=== PATIENT | male | born 1995 | race Caucasian/White ===

== ENCOUNTER 2018-04-11 08:49 | Emergency (ER) | payer MEDICAID ==
[2018-04-11] MEDS ORDERED: Ondansetron 4 MG/2 ML SDV IVPUSH ONE (09:46)
--- NOTE | 2018-04-11 09:57 | EDM.PDOC ---
ED HPI GENERAL MEDICAL PROBLEM - General Chief Complaint: General Stated Complaint: ARMS LOCKED UP, VOCAL ISSUES, SWEATING Time Seen by Provider: 04/11/18 09:35 Source of Information: Reports: Patient, Family History Limitations: Reports: No Limitations - History of Present Illness INITIAL COMMENTS - FREE TEXT/NARRATIVE: 22-year-old male drank a lot of alcohol last night, had to wake up early this morning and go to work so he had an energy drink. He was very nauseous, had an emesis and then felt very lightheaded and short of breath. He then felt like his arms went numb and "locked up" and he just didn't feel right so came in to be evaluated. He had 2 more episodes of emesis, no hematemesis and no diarrhea. He has no pain but still feels nauseous and anxious. He is tachycardic with a sinus rhythm of 124. Onset: Unknown/Unsure Severity: Moderate Worsens with: Reports: Other (Becomes lightheaded with walking) Associated Symptoms: Reports: Diaphoresis, Loss of Appetite, Malaise, Nausea/ Vomiting, Weakness. Denies: Confusion, Chest Pain, Cough, Fever/Chills, Shortness of Breath - Related Data Allergies Allergy/AdvReac Type Severity Reaction Status Date / Time No Known Allergies Allergy Verified 04/11/18 09:28 Home Meds: Home Meds NK [No Known Home Meds] 04/11/18 [History] Social & Family History - Tobacco Use Smoking Status *Q: Never Smoker - Caffeine Use Caffeine Use: Reports: Coffee, Energy Drinks, Soda - Recreational Drug Use Recreational Drug Use: No ED ROS GENERAL - Review of Systems Review Of Systems: See Below Constitutional: Reports: Malaise, Weakness, Decreased Appetite. Denies: Fever, Chills HEENT: Reports: Other (Initially was unable to talk). Denies: Vision Change Respiratory: Reports: Shortness of Breath Cardiovascular: Denies: Chest Pain GI/Abdominal: Reports: Nausea, Vomiting. Denies: Abdominal Pain : Reports: No Symptoms Musculoskeletal: Reports: Other (Significant muscle spasms in his arms which have resolved) Neurological: Reports: Numbness (Upper extremities), Trouble Speaking. Denies: Headache Psychiatric: Reports: Anxiety ED EXAM, GENERAL - Physical Exam Exam: See Below Exam Limited By: No Limitations General Appearance: Alert, No Apparent Distress, Other (Still somewhat anxious, looks pale) Eye Exam: Bilateral Eye: Normal Inspection Throat/Mouth: Normal Inspection Head: Atraumatic Neck: Normal Inspection Respiratory/Chest: No Respiratory Distress, Lungs Clear Cardiovascular: Regular Rate, Rhythm, Tachycardia GI/Abdominal: Soft, Non-Tender Extremities: Normal Inspection. No: Pedal Edema Neurological: Alert, Oriented Psychiatric: Anxious Skin Exam: Warm, Dry, Pallor Course - Vital Signs Last Recorded V/S: Last Vital Signs Temp 96.5 F 04/11/18 09:30 Pulse 120 H 04/11/18 09:30 Resp 13 04/11/18 09:30 BP 143/101 H 04/11/18 09:30 Pulse Ox 98 04/11/18 09:30 - Orders/Labs/Meds Labs: Laboratory Tests 04/11/18 04/11/18 Range/Units 10:00 10:00 WBC 18.9 H (4.5-11.0) K/uL RBC 5.15 (4.30-5.90) M/uL Hgb 16.5 H (12.0-15.0) g/dL Hct 47.6 (40.0-54.0) % MCV 92 (80-98) fL MCH 32 H (27-31) pg MCHC 35 (32-36) % Plt Count 260 (150-400) K/uL Neut % (Auto) 79 H (36-66) % Lymph % (Auto) 15 L (24-44) % [place] % (Auto) 6 (2-6) % Eos % (Auto) 0 L (2-4) % Baso % (Auto) 0 (0-1) % Sodium 140 (140-148) mmol/L Potassium 3.5 L (3.6-5.2) mmol/L Chloride 100 (100-108) mmol/L Carbon Dioxide 22 (21-32) mmol/L Anion Gap 21.5 H (5.0-14.0) mmol/L BUN 13 (7-18) mg/dL Creatinine 1.3 (0.8-1.3) mg/dL Est Cr Clr Drug Dosing 87.13 mL/min Estimated GFR (MDRD) > 60 (>60) Glucose 133 H (74-106) mg/dL Calcium 9.8 (8.5-10.1) mg/dL Total Bilirubin 0.5 (0.2-1.0) mg/dL AST 90 H (15-37) U/L ALT 167 H (12-78) U/L Alkaline Phosphatase 83 (46-116) U/L Total Protein 8.3 H (6.4-8.2) g/dL Albumin 4.2 (3.4-5.0) g/dL Globulin 4.1 H (2.3-3.5) g/dL Albumin/Globulin Ratio 1.0 L (1.2-2.2) Meds: Medications Discontinued Medications Generic Name Dose Route Start Last Admin Trade Name Freq PRN Reason Stop Dose Admin Sodium Chloride 1,000 mls @ 1,000 mls/hr 04/11/18 10:00 04/11/18 10:00 Normal Saline IV 1,000 mls/hr ASDIRECTED HARRY Administration Ondansetron HCl 4 mg 04/11/18 09:46 04/11/18 10:00 Zofran IVPUSH 04/11/18 09:47 4 mg ONETIME ONE Administration - Re-Assessments/Exams Free Text/Narrative Re-Assessment/Exam: 04/11/18 09:56 IV was started, patient was given 1 L normal saline along with 4 mg of IV Zofran. CBC CMP were obtained. 04/11/18 10:29 Patient rapidly improved with the IV fluids and Zofran. White count returned elevated, anion gap was elevated and liver enzymes were elevated. I had a discussion with the patient about his alcohol intake and he admitted he drinks fairly heavily on a daily basis. I offered him detox but he elected to try to go home and sober up on his own. He was given a full liter of fluids and felt near baseline on discharge. Departure - Departure Time of Disposition: 11:10 Disposition: Home, Self-Care 01 Condition: Fair Clinical Impression: Acute hyperventilation syndrome, Dehydration - Discharge Information Instructions: Dehydration, Adult, [id number] Referrals: PCP,None [Primary Care Provider] - Forms: ED Department Discharge Care Plan Goals: Drink lots of fluids, rest, and avoid alcohol if possible. If symptoms are worsening or you are unable to quit drinking, seek help.
[2018-04-11] MEDS ORDERED: Sodium Chloride 0.9% 1,000 ML IV SCH (10:00)
== END 2018-04-11 11:09 | disposition home or self-care (01) ==
LOC: JP.ED 08:49
DX: E86.0 Dehydration (principal); F45.8 Other somatoform disorders
CPT/HCPCS: 36415; 80053; 85025; 96361; 96374; 99284; J2405; J7030

== ENCOUNTER 2019-04-06 18:10 | Emergency (ER) | payer MEDICAID ==
[2019-04-06] MEDS ORDERED: MVI, Adult with Vitamin K 10 ML, Thiamine 100 MG, Folic Acid 1 MG, Magnesium Sulfate 2 ... IV ONE ×5 (18:35)
[2019-04-06] MEDS ORDERED: Sodium Chloride 0.9% 10 ML Syringe FLUSH PRN (18:35)
--- NOTE | 2019-04-06 18:43 | EDM.PDOCBH ---
ED HPI GENERAL MEDICAL PROBLEM - General Chief Complaint: Drug or Alcohol Abuse Stated Complaint: EVAL Time Seen by Provider: 04/06/19 18:30 Source of Information: Reports: Patient, Family, RN Notes Reviewed History Limitations: Reports: No Limitations - History of Present Illness INITIAL COMMENTS - FREE TEXT/NARRATIVE: 23-year-old gentleman presents emergency department today requesting detoxification for alcohol. States he last used alcohol this morning prefers to drink schnapps. He states he's never been to detox before he does have one complained he's noticed some numbness and tingling in his feet that has been going on for about a week. He does admit to poor oral intake not eating as well as she should she eats maybe once a day otherwise just uses alcohol - Related Data Allergies Allergy/AdvReac Type Severity Reaction Status Date / Time No Known Allergies Allergy Verified 04/06/19 19:17 Home Meds: Home Meds NK [No Known Home Meds] 04/11/18 [History] Past Medical History HEENT History: Reports: Impaired Vision Psychiatric History: Reports: Addiction Social & Family History - Tobacco Use Smoking Status *Q: Never Smoker - Caffeine Use Caffeine Use: Reports: None - Alcohol Use Days Per Week of Alcohol Use: 7 Number of Drinks Per Day: 12 Total Drinks Per Week: 84 Date of Last Drink: 04/06/19 Time of Last Drink: 12:00 - Recreational Drug Use Recreational Drug Use: No ED ROS GENERAL - Review of Systems Review Of Systems: See Below Constitutional: Reports: No Symptoms HEENT: Reports: No Symptoms Respiratory: Reports: No Symptoms Cardiovascular: Reports: No Symptoms GI/Abdominal: Reports: No Symptoms : Reports: No Symptoms Musculoskeletal: Reports: No Symptoms Skin: Reports: No Symptoms Neurological: Reports: Numbness, Tingling ED EXAM, BEHAVIORAL HEALTH - Physical Exam Exam: See Below Exam Limited By: No Limitations General Appearance: Alert, WD/WN, No Apparent Distress Respiratory/Chest: No Respiratory Distress, Lungs Clear, Normal Breath Sounds, No Accessory Muscle Use, Chest Non-Tender Cardiovascular: Regular Rate, Rhythm, No Murmur GI/Abdominal: Soft, Non-Tender COURSE, BEHAVIORAL HEALTH COMP - Course Vital Signs: Last Vital Signs Temp 97.1 F 04/06/19 18:30 Pulse 101 H 04/06/19 18:30 Resp 22 H 04/06/19 18:30 BP 145/98 H 04/06/19 18:30 Pulse Ox 97 04/06/19 18:30 Orders, Labs, Meds: Active Orders 24 hr Category Date Time Status Peripheral IV Care [RC] . DIRECTED Care 04/06/19 18:36 Active Sodium Chloride 0.9% [Saline Flush] Med 04/06/19 18:35 Active 10 ml FLUSH ASDIRECTED PRN Peripheral IV Insertion Adult [OM.PC] Urgent Oth 04/06/19 18:35 Ordered Medication Orders Sodium Chloride (Saline Flush) 10 ml FLUSH ASDIRECTED PRN PRN Reason: Keep Vein Open Last Admin: 04/06/19 18:52 Dose: 10 ml Laboratory Tests 04/06/19 04/06/19 04/06/19 Range/Units 18:35 18:35 18:35 WBC 9.5 (4.5-11.0) K/uL RBC 4.72 (4.30-5.90) M/uL Hgb 15.0 (12.0-15.0) g/dL Hct 44.0 (40.0-54.0) % MCV 93 (80-98) fL MCH 32 H (27-31) pg MCHC 34 (32-36) % Plt Count 290 (150-400) K/uL Neut % (Auto) 62 (36-66) % Lymph % (Auto) 22 L (24-44) % [place] % (Auto) 15 H (2-6) % Eos % (Auto) 0 L (2-4) % Baso % (Auto) 1 (0-1) % Sodium 127 L (140-148) mmol/L Potassium 2.4 L* (3.6-5.2) mmol/L Chloride 80 L (100-108) mmol/L Carbon Dioxide 33 H (21-32) mmol/L Anion Gap 16.4 H (5.0-14.0) mmol/L BUN 6 L D (7-18) mg/dL Creatinine 1.1 (0.8-1.3) mg/dL Est Cr Clr Drug Dosing 111.81 mL/min Estimated GFR (MDRD) > 60 (>60) Glucose 121 H (74-106) mg/dL Calcium 10.1 (8.5-10.1) mg/dL Total Bilirubin 3.6 H D (0.2-1.0) mg/dL AST 332 H D (15-37) U/L ALT 137 H (12-78) U/L Alkaline Phosphatase 190 H D (46-116) U/L Total Protein 8.9 H (6.4-8.2) g/dL Albumin 4.1 (3.4-5.0) g/dL Globulin 4.8 H (2.3-3.5) g/dL Albumin/Globulin Ratio 0.9 L (1.2-2.2) Urine Color (YELLOW) Urine Appearance (CLEAR) Urine pH (5.0-8.0) Ur Specific [place] (1.008-1.030) Urine Protein (NEGATIVE) mg/dL Urine Glucose (UA) (NEGATIVE) mg/dL Urine Ketones (NEGATIVE) mg/dL Urine Occult Blood (NEGATIVE) Urine Nitrite (NEGATIVE) Urine Bilirubin (NEGATIVE) Urine Urobilinogen (0.2-1.0) EU/dL Ur Leukocyte Esterase (NEGATIVE) Urine RBC (0-5) Urine WBC (0-5) Ur Epithelial Cells Amorphous Sediment Urine Bacteria Urine Mucus Urine Opiates Screen (NEGATIVE) Ur Oxycodone Screen (NEGATIVE) Urine Methadone Screen (NEGATIVE) Ur Propoxyphene Screen (NEGATIVE) Ur Barbiturates Screen (NEGATIVE) Ur Tricyclics Screen (NEGATIVE) Ur Phencyclidine Scrn (NEGATIVE) Ur Amphetamine Screen (NEGATIVE) U Methamphetamines Scrn (NEGATIVE) Urine MDMA Screen (NEGATIVE) U Benzodiazepines Scrn (NEGATIVE) U Cocaine Metab Screen (NEGATIVE) U Marijuana (THC) Screen (NEGATIVE) Ethyl Alcohol 128 mg/dL 04/06/19 04/06/19 04/07/19 Range/Units 22:09 22:09 00:05 WBC (4.5-11.0) K/uL RBC (4.30-5.90) M/uL Hgb (12.0-15.0) g/dL Hct (40.0-54.0) % MCV (80-98) fL MCH (27-31) pg MCHC (32-36) % Plt Count (150-400) K/uL Neut % (Auto) (36-66) % Lymph % (Auto) (24-44) % [place] % (Auto) (2-6) % Eos % (Auto) (2-4) % Baso % (Auto) (0-1) % Sodium (140-148) mmol/L Potassium 2.9 L* (3.6-5.2) mmol/L Chloride (100-108) mmol/L Carbon Dioxide (21-32) mmol/L Anion Gap (5.0-14.0) mmol/L BUN (7-18) mg/dL Creatinine (0.8-1.3) mg/dL Est Cr Clr Drug Dosing mL/min Estimated GFR (MDRD) (>60) Glucose (74-106) mg/dL Calcium (8.5-10.1) mg/dL Total Bilirubin (0.2-1.0) mg/dL AST (15-37) U/L ALT (12-78) U/L Alkaline Phosphatase (46-116) U/L Total Protein (6.4-8.2) g/dL Albumin (3.4-5.0) g/dL Globulin (2.3-3.5) g/dL Albumin/Globulin Ratio (1.2-2.2) Urine Color [place] A (YELLOW) Urine Appearance Clear (CLEAR) Urine pH 6.0 (5.0-8.0) Ur Specific [place] 1.010 (1.008-1.030) Urine Protein Negative (NEGATIVE) mg/dL Urine Glucose (UA) Negative (NEGATIVE) mg/dL Urine Ketones Negative (NEGATIVE) mg/dL Urine Occult Blood Negative (NEGATIVE) Urine Nitrite Negative (NEGATIVE) Urine Bilirubin Small H (NEGATIVE) Urine Urobilinogen 4.0 H (0.2-1.0) EU/dL Ur Leukocyte Esterase Negative (NEGATIVE) Urine RBC 0-5 (0-5) Urine WBC 0-5 (0-5) Ur Epithelial Cells Few Amorphous Sediment Few Urine Bacteria Rare Urine Mucus Few Urine Opiates Screen Negative (NEGATIVE) Ur Oxycodone Screen Negative (NEGATIVE) Urine Methadone Screen Negative (NEGATIVE) Ur Propoxyphene Screen Negative (NEGATIVE) Ur Barbiturates Screen Negative (NEGATIVE) Ur Tricyclics Screen Negative (NEGATIVE) Ur Phencyclidine Scrn Negative (NEGATIVE) Ur Amphetamine Screen Negative (NEGATIVE) U Methamphetamines Scrn Negative (NEGATIVE) Urine MDMA Screen Negative (NEGATIVE) U Benzodiazepines Scrn Negative (NEGATIVE) U Cocaine Metab Screen Negative (NEGATIVE) U Marijuana (THC) Screen Negative (NEGATIVE) Ethyl Alcohol mg/dL Medications Generic Name Dose Route Start Last Admin Trade Name Keshav PRN Reason Stop Dose Admin Sodium Chloride 10 ml 04/06/19 18:35 04/06/19 18:52 Saline Flush FLUSH 10 ml ASDIRECTED PRN Administration Keep Vein Open Discontinued Medications Generic Name Dose Route Start Last Admin Trade Name Keshav PRN Reason Stop Dose Admin Multivitamins/Minerals 10 ml/ 1,015.2 mls @ 500 mls/hr 04/06/19 18:35 19:18 Thiamine HCl 100 mg/ Folic IV 04/06/19 20:36 500 mls/hr Acid 1 mg/ Magnesium Sulfate 2 ONETIME ONE Administration gm/ Sodium Chloride Potassium Chloride 20 meq/ 100 mls @ 50 mls/hr 04/06/19 19:12 04/06/19 20:48 Premix IV 04/06/19 21:11 50 mls/hr ONETIME ONE Administration Ondansetron HCl 4 mg 04/06/19 20:05 04/06/19 20:17 Zofran IVPUSH 04/06/19 20:06 4 mg ONETIME ONE Administration Potassium Chloride 40 meq 04/06/19 19:11 04/06/19 19:58 Klor-Con M20 PO 04/06/19 19:12 40 meq ONETIME ONE Administration Departure - Departure Time of Disposition: 00:47 Disposition: DC/Tfer to Inpt Rehab Fac 62 Condition: Fair Clinical Impression: Alcohol abuse - Discharge Information Referrals: PCP,None [Primary Care Provider] - Forms: ED Department Discharge Additional Instructions: Please report to [facility] for detoxification, continue working on inpatient treatment for alcohol - My Orders Last 24 Hours: My Active Orders 04/06/19 18:35 Sodium Chloride 0.9% [Saline Flush] 10 ml FLUSH ASDIRECTED PRN Peripheral IV Insertion Adult [OM.PC] Urgent 04/06/19 18:36 Peripheral IV Care [RC] . DIRECTED - Assessment/Plan Last 24 Hours: My Active Orders 04/06/19 18:35 Sodium Chloride 0.9% [Saline Flush] 10 ml FLUSH ASDIRECTED PRN Peripheral IV Insertion Adult [OM.PC] Urgent 04/06/19 18:36 Peripheral IV Care [RC] . DIRECTED Plan: Assessment Acuity = acute Site and laterality = alcohol abuse and dependence Etiology = EtOH Manifestations = elevated liver enzymes and hypokalemia Location of injury = Home Lab values = CBC unremarkable sodium low at 127 consistent hyponatremia potassium low at 2.4 consistent hypokalemia F replacement potassium 2.9 total bilirubin elevated 3.6 consistent hyperbilirubinemia AST elevated 3T to AOT elevated 137 consistent elevated liver enzymes alcohol was 128 urine tox screen negative Plan He is transferred to [facility] detoxification facility for alcohol withdrawal and and plan for inpatient treatment afterwards This note was dictated using [employer] voice recognition software please call with any questions on syntax or grammar.
[2019-04-06] MEDS ORDERED: Potassium Chloride 20 MEQ Tab.ER PO ONE (19:11)
[2019-04-06] MEDS ORDERED: Potassium Chloride 20 MEQ in Premix Bag 1 BAG IV ONE (19:12)
[2019-04-06] MEDS ORDERED: Ondansetron 4 MG/2 ML SDV IVPUSH ONE (20:05)
== END 2019-04-07 01:36 ==
LOC: JP.ED 18:10
DX: F10.10 Alcohol abuse, uncomplicated (principal); Y90.6 Blood alcohol level of 120-199 mg/100 ml
CPT/HCPCS: 36415; 80053; 80305; 80320; 81001; 84132; 85025; 96365; 96366; 96367; 96375; 99284; A9270; J2405; J3411; J3475; J3480; J7030; G0480; J3490

== ENCOUNTER 2019-04-08 06:46 | Emergency (ER) | payer MEDICAID ==
[2019-04-08] MEDS ORDERED: Alum Hydrox/Mag Hydrox/Simeth 15 ML, Lidocaine 2% 15 ML PO ONE ×2 (07:30)
[2019-04-08] MEDS ORDERED: Ondansetron 4 MG Tab.DIS PO ONE (07:31)
--- NOTE | 2019-04-08 07:36 | EDM.PDOC ---
ED HPI GENERAL MEDICAL PROBLEM - General Chief Complaint: Abdominal Pain Stated Complaint: STOMACH PAIN Time Seen by Provider: 04/08/19 07:25 Source of Information: Reports: Patient, RN History Limitations: Reports: No Limitations - History of Present Illness INITIAL COMMENTS - FREE TEXT/NARRATIVE: 23 yo male recently admitted to [facility] for alcohol abuse presents with abdominal pain that began early this morning. Has had some diarrhea. Feels a little nausea. No fever. No black or bloody stools. Here from [facility] who has his bed on hold for now. Onset: Today Onset Date: 04/08/19 Duration: Hour(s):, Waxing/Waning Location: Reports: Abdomen, Generalized Quality: Reports: Ache Severity: Moderate Improves with: Reports: None Worsens with: Reports: None Context: Reports: Other (see HPI) Associated Symptoms: Reports: Loss of Appetite, Nausea/Vomiting (no vomiting). 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) Left Upper Abdomen Pain Score (Numeric/FACES): 9 - Related Data Allergies Allergy/AdvReac Type Severity Reaction Status Date / Time No Known Allergies Allergy Verified 04/08/19 07:17 Home Meds: Home Meds Potassium Chloride [Klor-Con] 20 meq PO DAILY 04/08/19 [History] Past Medical History HEENT History: Reports: Impaired Vision Psychiatric History: Reports: Addiction Social & Family History - Tobacco Use Smoking Status *Q: Never Smoker - Caffeine Use Caffeine Use: Reports: None - Recreational Drug Use Recreational Drug Use: No ED ROS GENERAL - Review of Systems Review Of Systems: See Below Constitutional: Reports: Malaise HEENT: Reports: No Symptoms Respiratory: Reports: No Symptoms Cardiovascular: Reports: No Symptoms Endocrine: Reports: No Symptoms GI/Abdominal: Reports: Anorexia, Diarrhea, Nausea. Denies: Black Stool, Bloody Stool, Constipation, Difficulty Swallowing, Distension, Flatus, Hematemesis, Hematochezia, Melena, Vomiting : Reports: No Symptoms Musculoskeletal: Reports: No Symptoms Skin: Reports: No Symptoms Neurological: Reports: No Symptoms Psychiatric: Reports: No Symptoms ED EXAM, GI/ABD - Physical Exam Exam: See Below Exam Limited By: No Limitations General Appearance: Alert, WD/WN, No Apparent Distress Eyes: Bilateral: Normal Appearance Ears: Normal External Exam, Normal Canal, Hearing Grossly Normal, Normal TMs Nose: Normal Inspection, No Blood Throat/Mouth: Normal Inspection, Normal Lips, Normal Oropharynx, Normal Voice, No Airway Compromise Head: Atraumatic, Normocephalic Neck: Normal Inspection Respiratory/Chest: No Respiratory Distress, Lungs Clear, Normal Breath Sounds, No Accessory Muscle Use Cardiovascular: Regular Rate, Rhythm, No Edema GI/Abdominal Exam: Normal Bowel Sounds, Soft, No Distention, Tender (diffusely, worse in epigastrium). No: Non-Tender, Distended, Guarding, Rigid, Rebound Back Exam: Normal Inspection. No: CVA Tenderness (R), CVA Tenderness (L) Extremities: Normal Inspection, Normal Range of Motion, Non-Tender, No Pedal Edema Neurological: Alert, Oriented, CN II-XII Intact, Normal Cognition, No Motor/ Sensory Deficits, Other (mild tremors) Psychiatric: Normal Affect, Normal Mood Skin Exam: Warm, Dry, Intact, Normal Color, No Rash Course - Vital Signs Last Recorded V/S: Last Vital Signs Temp 35.6 C 04/08/19 07:14 Pulse 100 04/08/19 07:14 Resp 16 04/08/19 07:14 BP 150/108 H 04/08/19 07:14 Pulse Ox 99 04/08/19 07:14 - Orders/Labs/Meds Orders: Active Orders 24 hr Category Date Time Status Bismuth Subsalicylate [Pepto Bismol] Med 04/08/19 08:07 Once 30 ml PO ONETIME ONE Medication Orders Bismuth Subsalicylate (Pepto Bismol) 30 ml PO ONETIME ONE Stop: 04/08/19 08:08 Labs: Laboratory Tests 04/08/19 Range/Units 07:43 Potassium 3.6 (3.6-5.2) mmol/L Meds: Medications Generic Name Dose Route Start Last Admin Trade Name Freq PRN Reason Stop Dose Admin Bismuth Subsalicylate 30 ml 04/08/19 08:07 Pepto Bismol PO 04/08/19 08:08 ONETIME ONE Discontinued Medications Generic Name Dose Route Start Last Admin Trade Name Freq PRN Reason Stop Dose Admin Al Hydroxide/Mg Hydroxide 15 0 ml 04/08/19 07:30 04/08/19 07:41 ml/ Lidocaine HCl 15 ml PO 04/08/19 07:31 30 ml ONETIME ONE Administration Famotidine 40 mg 04/08/19 07:59 Pepcid PO 04/08/19 08:00 ONETIME ONE Ondansetron HCl 4 mg 04/08/19 07:31 04/08/19 07:41 Zofran Odt PO 04/08/19 07:32 4 mg ONETIME ONE Administration - Re-Assessments/Exams Free Text/Narrative Re-Assessment/Exam: 04/08/19 08:00 Pain reduced ~50% after GI cocktail po Departure - Departure Time of Disposition: 08:15 Disposition: Home, Self-Care 01 Condition: Fair Clinical Impression: Alcoholic gastritis Qualifiers: Chronicity: acute Gastritis bleeding: without bleeding Qualified Code(s): K29.20 - Alcoholic gastritis without bleeding - Discharge Information *PRESCRIPTION DRUG MONITORING PROGRAM REVIEWED*: No *COPY OF PRESCRIPTION DRUG MONITORING REPORT IN PATIENT BENJAMIN: No Instructions: Gastritis, Adult, [id number] Referrals: PCP,None [Primary Care Provider] - Forms: ED Department Discharge Additional Instructions: Take famotidine 40 mg daily until gone. Take Pepto Bismol 30 ml after meals and at bedtime as needed for diarrhea/epigastric pain. Avoid alcohol, caffeine, carbonated beverages, aspirin, ibuprofen, or Aleve until your stomach heals. Recheck with your provider if not improving. - My Orders Last 24 Hours: My Active Orders 04/08/19 08:07 Bismuth Subsalicylate [Pepto Bismol] 30 ml PO ONETIME ONE - Assessment/Plan Last 24 Hours: My Active Orders 04/08/19 08:07 Bismuth Subsalicylate [Pepto Bismol] 30 ml PO ONETIME ONE
[2019-04-08] MEDS ORDERED: Famotidine 20 MG Tab PO ONE (07:59)
[2019-04-08] MEDS ORDERED: Bismuth Subsalicylate 262 MG/15 ML Susp 236 ML Bottle PO ONE ×2 (08:07→08:30)
== END 2019-04-08 09:42 | disposition home or self-care (01) ==
LOC: JP.ED 06:46
DX: K29.20 Alcoholic gastritis without bleeding (principal)
CPT/HCPCS: 36415; 84132; 99284; A9270

== ENCOUNTER 2019-04-09 14:40 | Inpatient (IN) | payer MEDICAID ==
[2019-04-09] MEDS ORDERED: Sodium Chloride 0.9% 10 ML Syringe FLUSH PRN (15:36)
[2019-04-09] MEDS ORDERED: LORazepam 2 MG/ML SDV IVPUSH ONE (15:36)
[2019-04-09] MEDS ORDERED: MVI, Adult with Vitamin K 10 ML, Thiamine 100 MG, Folic Acid 1 MG, Magnesium Sulfate 3 ... IV SCH ×5 (15:45)
[2019-04-09] MEDS ORDERED: Lactated Ringers 1,000 ML IV SCH ×4 (17:30→21:45)
--- NOTE | 2019-04-09 17:40 | EDM.PDOC ---
ED HPI GENERAL MEDICAL PROBLEM - General Chief Complaint: Cardiovascular Problem Stated Complaint: HIGH HEART RATE Time Seen by Provider: 04/09/19 15:22 Source of Information: Reports: Patient, EMS History Limitations: Reports: No Limitations - History of Present Illness INITIAL COMMENTS - FREE TEXT/NARRATIVE: This patient comes from [facility] where he is been undergoing alcohol detox. Today they noted heart rate in the 140s and 150s. He's had about 3 mg of Ativan since noon. He was admitted 1 AM day before yesterday his last drink was at noon on Thursday which would be 3 days ago. He denies alcohol withdrawal. His friends say that he has had some jaundice for a while. They say his eyes have been yellow and his skin yellow. He denies any other substance abuse such as cocaine or methamphetamine. - Related Data Allergies Allergy/AdvReac Type Severity Reaction Status Date / Time No Known Allergies Allergy Verified 04/08/19 07:17 Home Meds: Home Meds Famotidine 40 mg PO DAILY #30 tablet 04/08/19 [Rx] Potassium Chloride [Klor-Con] 20 meq PO DAILY 04/08/19 [History] Past Medical History HEENT History: Reports: Impaired Vision Psychiatric History: Reports: Addiction Social & Family History - Tobacco Use Smoking Status *Q: Never Smoker - Caffeine Use Caffeine Use: Reports: None - Recreational Drug Use Recreational Drug Use: No ED ROS GENERAL - Review of Systems Review Of Systems: ROS reveals no pertinent complaints other than HPI. Constitutional: Reports: No Symptoms HEENT: Reports: No Symptoms Respiratory: Reports: No Symptoms Cardiovascular: Reports: Palpitations Endocrine: Reports: No Symptoms GI/Abdominal: Reports: No Symptoms : Reports: No Symptoms Musculoskeletal: Reports: No Symptoms Skin: Reports: Jaundice Neurological: Reports: No Symptoms Psychiatric: Reports: No Symptoms Hematologic/Lymphatic: Reports: No Symptoms ED EXAM, GENERAL - Physical Exam Exam: See Below Exam Limited By: No Limitations General Appearance: WD/WN, Other (Seems just slightly sedated.) Eye Exam: Bilateral Eye: EOMI, PERRL, Other (Bilateral scleral icterus) Nose: Normal Inspection Throat/Mouth: Normal Oropharynx Head: Atraumatic Neck: Normal Inspection Respiratory/Chest: Lungs Clear Cardiovascular: Normal Peripheral Pulses, Regular Rate, Rhythm, No Murmur GI/Abdominal: Non-Tender Extremities: Normal Inspection Neurological: Oriented, CN II-XII Intact, No Motor/Sensory Deficits, Other (A little slow but he has been given benzodiazepines) Psychiatric: Normal Affect Skin Exam: Warm, Dry, Jaundice (Very slight) Course - Vital Signs Last Recorded V/S: Last Vital Signs Temp 37.6 C 04/09/19 15:38 Pulse 134 H 04/09/19 16:08 Resp 30 H 04/09/19 16:38 BP 149/102 H 04/09/19 16:38 Pulse Ox 91 L 04/09/19 16:08 - Orders/Labs/Meds Orders: Active Orders 24 hr Category Date Time Status EKG Documentation Completion [RC] ASDIRECTED Care 04/09/19 15:36 Active Abdomen Ltd [US] Stat Exams 04/09/19 16:44 Ordered LIPASE [CHEM] Urgent Lab 04/09/19 17:26 Ordered Lactated Ringers [Ringers, Lactated] 1,000 ml Med 04/09/19 17:30 Active IV ASDIRECTED MVI, Adult with Vitamin K [Infuvite Adult] 10 ml Med 04/09/19 15:45 Active Thiamine [Vitamin B-1] 100 mg Folic Acid 1 mg Magnesium Sulfate [Magnesium Sulfate 50%] 3 gm Sodium Chloride 0.9% [Normal Saline] 1,000 ml IV ASDIRECTED Sodium Chloride 0.9% [Saline Flush] Med 04/09/19 15:36 Active 10 ml FLUSH ASDIRECTED PRN Saline Lock Insert [OM.PC] Urgent Oth 04/09/19 15:35 Ordered EKG 12 Lead [EK] Urgent Ther 04/09/19 15:35 Ordered Medication Orders Multivitamins/Minerals 10 ml/Thiamine HCl 100 mg/ Folic Acid 1 mg/ Magnesium Sulfate 3 gm/ Sodium Chloride 1,017.2 mls @ 999 mls/hr IV ASDIRECTED HARRY Last Admin: 04/09/19 16:27 Dose: 999 mls/hr Lactated Ringer's (Ringers, Lactated) 1,000 mls @ 999 mls/hr IV ASDIRECTED HARRY Stop: 04/09/19 18:31 Sodium Chloride (Saline Flush) 10 ml FLUSH ASDIRECTED PRN PRN Reason: Keep Vein Open Last Admin: 04/09/19 16:35 Dose: 10 ml Labs: Laboratory Tests 04/09/19 04/09/19 04/09/19 Range/Units 15:48 15:48 15:48 WBC 23.2 H (4.5-11.0) K/uL RBC 4.36 (4.30-5.90) M/uL Hgb 14.2 (12.0-15.0) g/dL Hct 42.6 (40.0-54.0) % MCV 98 (80-98) fL MCH 33 H (27-31) pg MCHC 33 (32-36) % Plt Count 221 (150-400) K/uL Add Manual Diff Yes Neutrophils % (Manual) 81 H (36-66) % Band Neutrophils % 2 L (5-11) % Lymphocytes % (Manual) 7 L (24-44) % Monocytes % (Manual) 9 H (2-6) % Eosinophils % (Manual) 1 L (2-4) % PT 12.1 H (9.5-12.0) sec INR 1.13 (0.80-1.20) Sodium 128 L (140-148) mmol/L Potassium 3.8 (3.6-5.2) mmol/L Chloride 89 L (100-108) mmol/L Carbon Dioxide 30 (21-32) mmol/L Anion Gap 12.8 (5.0-14.0) mmol/L BUN 11 D (7-18) mg/dL Creatinine 1.1 (0.8-1.3) mg/dL Est Cr Clr Drug Dosing 112.68 mL/min Estimated GFR (MDRD) > 60 (>60) Glucose 129 H (74-106) mg/dL Calcium 9.8 (8.5-10.1) mg/dL Total Bilirubin 7.4 H D (0.2-1.0) mg/dL AST 126 H (15-37) U/L ALT 68 (12-78) U/L Alkaline Phosphatase 157 H (46-116) U/L Total Protein 7.7 (6.4-8.2) g/dL Albumin 3.2 L (3.4-5.0) g/dL Globulin 4.5 H (2.3-3.5) g/dL Albumin/Globulin Ratio 0.7 L (1.2-2.2) Urine Color (YELLOW) Urine Appearance (CLEAR) Urine pH (5.0-8.0) Ur Specific [place] (1.008-1.030) Urine Protein Urine Glucose (UA) Urine Ketones Urine Occult Blood Urine Nitrite Urine Bilirubin Urine Urobilinogen Ur Leukocyte Esterase Urine RBC (0-5) Urine WBC (0-5) Ur Epithelial Cells Amorphous Sediment Urine Bacteria Urine Mucus Urine Opiates Screen (NEGATIVE) Ur Oxycodone Screen (NEGATIVE) Urine Methadone Screen (NEGATIVE) Ur Propoxyphene Screen (NEGATIVE) Ur Barbiturates Screen (NEGATIVE) Ur Tricyclics Screen (NEGATIVE) Ur Phencyclidine Scrn (NEGATIVE) Ur Amphetamine Screen (NEGATIVE) U Methamphetamines Scrn (NEGATIVE) Urine MDMA Screen (NEGATIVE) U Benzodiazepines Scrn (NEGATIVE) U Cocaine Metab Screen (NEGATIVE) U Marijuana (THC) Screen (NEGATIVE) 04/09/19 04/09/19 Range/Units 15:52 15:52 WBC (4.5-11.0) K/uL RBC (4.30-5.90) M/uL Hgb (12.0-15.0) g/dL Hct (40.0-54.0) % MCV (80-98) fL MCH (27-31) pg MCHC (32-36) % Plt Count (150-400) K/uL Add Manual Diff Neutrophils % (Manual) (36-66) % Band Neutrophils % (5-11) % Lymphocytes % (Manual) (24-44) % Monocytes % (Manual) (2-6) % Eosinophils % (Manual) (2-4) % PT (9.5-12.0) sec INR (0.80-1.20) Sodium (140-148) mmol/L Potassium (3.6-5.2) mmol/L Chloride (100-108) mmol/L Carbon Dioxide (21-32) mmol/L Anion Gap (5.0-14.0) mmol/L BUN (7-18) mg/dL Creatinine (0.8-1.3) mg/dL Est Cr Clr Drug Dosing mL/min Estimated GFR (MDRD) (>60) Glucose (74-106) mg/dL Calcium (8.5-10.1) mg/dL Total Bilirubin (0.2-1.0) mg/dL AST (15-37) U/L ALT (12-78) U/L Alkaline Phosphatase (46-116) U/L Total Protein (6.4-8.2) g/dL Albumin (3.4-5.0) g/dL Globulin (2.3-3.5) g/dL Albumin/Globulin Ratio (1.2-2.2) Urine Color [place] A (YELLOW) Urine Appearance Slightly cloudy A (CLEAR) Urine pH 5.0 (5.0-8.0) Ur Specific [place] 1.025 (1.008-1.030) Urine Protein TNP Urine Glucose (UA) TNP Urine Ketones TNP Urine Occult Blood TNP Urine Nitrite TNP Urine Bilirubin TNP Urine Urobilinogen TNP Ur Leukocyte Esterase TNP Urine RBC 5-10 H (0-5) Urine WBC 0-5 (0-5) Ur Epithelial Cells Few Amorphous Sediment Not seen Urine Bacteria Rare Urine Mucus Moderate Urine Opiates Screen Negative (NEGATIVE) Ur Oxycodone Screen Negative (NEGATIVE) Urine Methadone Screen Negative (NEGATIVE) Ur Propoxyphene Screen Negative (NEGATIVE) Ur Barbiturates Screen Negative (NEGATIVE) Ur Tricyclics Screen Presumptive positive H (NEGATIVE) Ur Phencyclidine Scrn Negative (NEGATIVE) Ur Amphetamine Screen Negative (NEGATIVE) U Methamphetamines Scrn Negative (NEGATIVE) Urine MDMA Screen Negative (NEGATIVE) U Benzodiazepines Scrn Presumptive positive H (NEGATIVE) U Cocaine Metab Screen Negative (NEGATIVE) U Marijuana (THC) Screen Negative (NEGATIVE) Meds: Medications Generic Name Dose Route Start Last Admin Trade Name Freq PRN Reason Stop Dose Admin Multivitamins/Minerals 10 ml/ 1,017.2 mls @ 999 mls/hr 04/09/19 15:45 16:27 Thiamine HCl 100 mg/ Folic IV 999 mls/hr Acid 1 mg/ Magnesium Sulfate 3 ASDIRECTED HARRY Administration gm/ Sodium Chloride Lactated Ringer's 1,000 mls @ 999 mls/hr 04/09/19 17:30 Ringers, Lactated IV 04/09/19 18:31 ASDIRECTED HARRY Sodium Chloride 10 ml 04/09/19 15:36 04/09/19 16:35 Saline Flush FLUSH 10 ml ASDIRECTED PRN Administration Keep Vein Open Discontinued Medications Generic Name Dose Route Start Last Admin Trade Name Freq PRN Reason Stop Dose Admin Lorazepam 1 mg 04/09/19 15:36 04/09/19 16:29 Ativan IVPUSH 04/09/19 15:37 1 mg ONETIME ONE Administration - Re-Assessments/Exams Free Text/Narrative Re-Assessment/Exam: 04/09/19 17:39 An IV was established. He was given 1 mg Ativan and a banana bag was started. An EKG showed sinus tachycardia at 138 weeks per minute loss of T waves in the anterior leads but no old EKGs to compare with. I spoke with Dr. Manning and he will be admitted for acute alcohol withdrawal Departure - Departure Time of Disposition: 17:39 Disposition: Admitted As Inpatient 64 Condition: Serious Clinical Impression: Alcohol withdrawal, Tachycardia Referrals: PCP,None [Primary Care Provider] - - My Orders Last 24 Hours: My Active Orders 04/09/19 15:35 Saline Lock Insert [OM.PC] Urgent EKG 12 Lead [EK] Urgent 04/09/19 15:36 EKG Documentation Completion [RC] ASDIRECTED Sodium Chloride 0.9% [Saline Flush] 10 ml FLUSH ASDIRECTED PRN 04/09/19 15:45 MVI, Adult with Vitamin K [Infuvite Adult] 10 ml Thiamine [Vitamin B-1] 100 mg Folic Acid 1 mg Magnesium Sulfate [Magnesium Sulfate 50%] 3 gm Sodium Chloride 0.9% [Normal Saline] 1,000 ml IV ASDIRECTED - Assessment/Plan Last 24 Hours: My Active Orders 04/09/19 15:35 Saline Lock Insert [OM.PC] Urgent EKG 12 Lead [EK] Urgent 04/09/19 15:36 EKG Documentation Completion [RC] ASDIRECTED Sodium Chloride 0.9% [Saline Flush] 10 ml FLUSH ASDIRECTED PRN 04/09/19 15:45 MVI, Adult with Vitamin K [Infuvite Adult] 10 ml Thiamine [Vitamin B-1] 100 mg Folic Acid 1 mg Magnesium Sulfate [Magnesium Sulfate 50%] 3 gm Sodium Chloride 0.9% [Normal Saline] 1,000 ml IV ASDIRECTED
--- NOTE | 2019-04-09 17:46 | PCM.HP.2 ---
H&P History of Present Illness - General Date of Service: 04/09/19 Admit Problem/Dx: Admission Diagnosis/Problem Admission Diagnosis/Problem Alcoholic hepatitis without ascites Source of Information: Patient, Family, Provider History Limitations: Reports: No Limitations - History of Present Illness Initial Comments - Free Text/Narative: CC: My heart is racing HPI: Jonh presents to the emergency room from detox with a sensation that his heart is racing as well as some abdominal pain and nausea. He reports that he has not been feeling well for the past couple of weeks with a slow progression. Initially it was difficulty with numbness and tingling in his fingers and his face. This sensation would come and go and has improved since that time. Over the past week he has had increased abdominal distention as well as some episodes of abdominal pain. He describes a mild to moderate achy pain that starts in the left upper quadrant or epigastrium and radiates to the left and down. Pain does get worse when he eats. Pain is worse when he presses on the abdomen. Pain does get better over time but he hasn't found anything to make the pain better necessarily. He has had nausea but has not had any vomiting. He' s never had pain like this before. He doesn't think he's had any fevers or chills. He has not had any hallucinations. He doesn't feel shaky. He does feel weak and feels tired. His dad noticed jaundice about one week ago but it's been worse the last few days. His abdominal pain has been getting worse. He was seen here yesterday for the abdominal pain and was thought to be related to gastritis. In the emergency room he was noted to be tachycardic with a heart rate in the 140s. Blood pressure is stable. Laboratory studies revealed significant leukocytosis with a white blood cell count more than 20,000. His bilirubin 7 and his lipase is more than 3000. Ultrasound of the right upper quadrant did not show any gallstones. He did have diffuse hepatitis. He will be receiving additional fluid boluses and will be admitted to the intensive care unit for management of pancreatitis and alcoholic hepatitis. Left Lower Abdominal Pain Score (Numeric/FACES): 1 - Related Data Allergies/Adverse Reactions: Allergies Allergy/AdvReac Type Severity Reaction Status Date / Time No Known Allergies Allergy Verified 04/08/19 07:17 Home Medications: Home Meds Famotidine 40 mg PO DAILY #30 tablet 04/08/19 [Rx] Potassium Chloride [Klor-Con] 20 meq PO DAILY 04/08/19 [History] Past Medical History HEENT History: Reports: Impaired Vision Psychiatric History: Reports: Addiction Social & Family History - Family History GI: Reports: Irritable Bowel Syndrome - Tobacco Use Smoking Status *Q: Never Smoker - Caffeine Use Caffeine Use: Reports: None - Alcohol Use Alcohol Use History: Yes Days Per Week of Alcohol Use: 7 Number of Drinks Per Day: 12 Total Drinks Per Week: 84 - Recreational Drug Use Recreational Drug Use: No H&P Review of Systems - Review of Systems: Review Of Systems: See Below Free Text/Narrative: A complete 12 point review of systems was obtained. Pertinent positives and negatives are noted in the history of present illness. All other systems were reviewed and were negative except as noted. Exam - Exam Exam: See Below - Vital Signs Vital Signs: Last Vital Signs Temp 37.6 C 04/09/19 15:38 Pulse 134 H 04/09/19 16:08 Resp 30 H 04/09/19 16:38 BP 149/102 H 04/09/19 16:38 Pulse Ox 91 L 04/09/19 16:08 Weight: 77.9 kg - Exam Quality Assessment: No: Supplemental Oxygen General: Alert, Oriented, Cooperative, Mild Distress HEENT: Scleral Icterus. No: Mucosa Moist & [place] (dry) Neck: Supple, Trachea Midline. No: Lymphadenopathy Lungs: Clear to Auscultation, Normal Respiratory Effort Cardiovascular: Regular Rhythm, Tachycardia GI/Abdominal Exam: Normal Bowel Sounds, No Mass, Distended, Tender. No: Soft Back Exam: Normal Inspection, Full Range of Motion Extremities: No Pedal Edema. No: Increased Warmth Peripheral Pulses: 2+: Dorsalis Pedis (L), Dorsalis Pedis (R) Skin: Warm, Dry Neuro Extensive - Mental Status: Alert, Oriented x3, Nl Response to Commands Neuro Extensive - Motor, Sensory, Reflexes: Tremor (very fine tremor of both hands), Other (mild asterixis of right hand). No: Dysarthria, Abnormal Motor Psychiatric: Alert, Normal Affect. No: Agitated - Patient Data Lab Results Last 24 hrs: Laboratory Results - last 24 hr 09/28/19 09/28/19 09/28/19 Range/Units 15:48 15:48 15:48 WBC 23.2 H (4.5-11.0) K/uL RBC 4.36 (4.30-5.90) M/uL Hgb 14.2 (12.0-15.0) g/dL Hct 42.6 (40.0-54.0) % MCV 98 (80-98) fL MCH 33 H (27-31) pg MCHC 33 (32-36) % Plt Count 221 (150-400) K/uL Add Manual Diff Yes Neutrophils % (Manual) 81 H (36-66) % Band Neutrophils % 2 L (5-11) % Lymphocytes % (Manual) 7 L (24-44) % Monocytes % (Manual) 9 H (2-6) % Eosinophils % (Manual) 1 L (2-4) % PT 12.1 H (9.5-12.0) sec INR 1.13 (0.80-1.20) Sodium 128 L (140-148) mmol/L Potassium 3.8 (3.6-5.2) mmol/L Chloride 89 L (100-108) mmol/L Carbon Dioxide 30 (21-32) mmol/L Anion Gap 12.8 (5.0-14.0) mmol/L BUN 11 D (7-18) mg/dL Creatinine 1.1 (0.8-1.3) mg/dL Est Cr Clr Drug Dosing 112.68 mL/min Estimated GFR (MDRD) > 60 (>60) Glucose 129 H (74-106) mg/dL Calcium 9.8 (8.5-10.1) mg/dL Total Bilirubin 7.4 H D (0.2-1.0) mg/dL AST 126 H (15-37) U/L ALT 68 (12-78) U/L Alkaline Phosphatase 157 H (46-116) U/L Total Protein 7.7 (6.4-8.2) g/dL Albumin 3.2 L (3.4-5.0) g/dL Globulin 4.5 H (2.3-3.5) g/dL Albumin/Globulin Ratio 0.7 L (1.2-2.2) Lipase (73-393) U/L Urine Color (YELLOW) Urine Appearance (CLEAR) Urine pH (5.0-8.0) Ur Specific [place] (1.008-1.030) Urine Protein Urine Glucose (UA) Urine Ketones Urine Occult Blood Urine Nitrite Urine Bilirubin Urine Urobilinogen Ur Leukocyte Esterase Urine RBC (0-5) Urine WBC (0-5) Ur Epithelial Cells Amorphous Sediment Urine Bacteria Urine Mucus Urine Opiates Screen (NEGATIVE) Ur Oxycodone Screen (NEGATIVE) Urine Methadone Screen (NEGATIVE) Ur Propoxyphene Screen (NEGATIVE) Ur Barbiturates Screen (NEGATIVE) Ur Tricyclics Screen (NEGATIVE) Ur Phencyclidine Scrn (NEGATIVE) Ur Amphetamine Screen (NEGATIVE) U Methamphetamines Scrn (NEGATIVE) Urine MDMA Screen (NEGATIVE) U Benzodiazepines Scrn (NEGATIVE) U Cocaine Metab Screen (NEGATIVE) U Marijuana (THC) Screen (NEGATIVE) 04/09/19 04/09/19 04/09/19 Range/Units 15:52 15:52 17:26 WBC (4.5-11.0) K/uL RBC (4.30-5.90) M/uL Hgb (12.0-15.0) g/dL Hct (40.0-54.0) % MCV (80-98) fL MCH (27-31) pg MCHC (32-36) % Plt Count (150-400) K/uL Add Manual Diff Neutrophils % (Manual) (36-66) % Band Neutrophils % (5-11) % Lymphocytes % (Manual) (24-44) % Monocytes % (Manual) (2-6) % Eosinophils % (Manual) (2-4) % PT (9.5-12.0) sec INR (0.80-1.20) Sodium (140-148) mmol/L Potassium (3.6-5.2) mmol/L Chloride (100-108) mmol/L Carbon Dioxide (21-32) mmol/L Anion Gap (5.0-14.0) mmol/L BUN (7-18) mg/dL Creatinine (0.8-1.3) mg/dL Est Cr Clr Drug Dosing mL/min Estimated GFR (MDRD) (>60) Glucose (74-106) mg/dL Calcium (8.5-10.1) mg/dL Total Bilirubin (0.2-1.0) mg/dL AST (15-37) U/L ALT (12-78) U/L Alkaline Phosphatase (46-116) U/L Total Protein (6.4-8.2) g/dL Albumin (3.4-5.0) g/dL Globulin (2.3-3.5) g/dL Albumin/Globulin Ratio (1.2-2.2) Lipase 3805 H (73-393) U/L Urine Color [place] A (YELLOW) Urine Appearance Slightly cloudy A (CLEAR) Urine pH 5.0 (5.0-8.0) Ur Specific [place] 1.025 (1.008-1.030) Urine Protein TNP Urine Glucose (UA) TNP Urine Ketones TNP Urine Occult Blood TNP Urine Nitrite TNP Urine Bilirubin TNP Urine Urobilinogen TNP Ur Leukocyte Esterase TNP Urine RBC 5-10 H (0-5) Urine WBC 0-5 (0-5) Ur Epithelial Cells Few Amorphous Sediment Not seen Urine Bacteria Rare Urine Mucus Moderate Urine Opiates Screen Negative (NEGATIVE) Ur Oxycodone Screen Negative (NEGATIVE) Urine Methadone Screen Negative (NEGATIVE) Ur Propoxyphene Screen Negative (NEGATIVE) Ur Barbiturates Screen Negative (NEGATIVE) Ur Tricyclics Screen Presumptive positive H (NEGATIVE) Ur Phencyclidine Scrn Negative (NEGATIVE) Ur Amphetamine Screen Negative (NEGATIVE) U Methamphetamines Scrn Negative (NEGATIVE) Urine MDMA Screen Negative (NEGATIVE) U Benzodiazepines Scrn Presumptive positive H (NEGATIVE) U Cocaine Metab Screen Negative (NEGATIVE) U Marijuana (THC) Screen Negative (NEGATIVE) Result Diagrams: 04/09/19 15:48 04/09/19 15:48 Imaging Impressions Last 24 hrs: Right upper quadrant ultrasound - images personally reviewed - liver is enlarged with a craniocaudal measurement of more than 20 centimeters. There is increased echogenicity diffusely consistent with fatty infiltration of the liver. Gallbladder appears normal. No obvious gallstones. Right kidney appears normal. *Q Meaningful Use (ADM) - VTE Risk Assess *Q Each Risk Factor Represents 1 Point: None Total Score 1 Point Risk Factors: 0 Each Risk Factor Represents 2 Points: None Total Score 2 Point Risk Factors: 0 Each Risk Factor Represents 3 Points: None Total Score 3 Point Risk Factors: 0 Each Risk Factor Represents 5 Points: None Total Score 5 Point Risk Factors: 0 Venous Thromboembolism Risk Factor Score *Q: 0 - Problem List (1) Alcoholic hepatitis without ascites SNOMED Code(s): 972455159 ICD Code: K70.10 - ALCOHOLIC HEPATITIS WITHOUT ASCITES Status: Acute Current Visit: Yes (2) Acute pancreatitis without infection or necrosis SNOMED Code(s): 798327017 ICD Code: K85.90 - ACUTE PANCREATITIS WITHOUT NECROSIS OR INFECTION, UNSP Status: Acute Current Visit: Yes Qualifiers: Pancreatitis type: alcohol induced Qualified Code(s): K85.20 - Alcohol induced acute pancreatitis without necrosis or infection Problem List Initiated/Reviewed/Updated: Yes Orders Last 24hrs: Active Orders 24 hr Category Date Time Status Patient Status Manage Transfer [TRANSFER] Routine ADT 04/09/19 17:39 Ordered EKG Documentation Completion [RC] ASDIRECTED Care 04/09/19 15:36 Active Abdomen Ltd [US] Stat Exams 04/09/19 16:44 Ordered Lactated Ringers [Ringers, Lactated] 1,000 ml Med 04/09/19 17:30 Active IV ASDIRECTED MVI, Adult with Vitamin K [Infuvite Adult] 10 ml Med 04/09/19 15:45 Active Thiamine [Vitamin B-1] 100 mg Folic Acid 1 mg Magnesium Sulfate [Magnesium Sulfate 50%] 3 gm Sodium Chloride 0.9% [Normal Saline] 1,000 ml IV ASDIRECTED Sodium Chloride 0.9% [Saline Flush] Med 04/09/19 15:36 Active 10 ml FLUSH ASDIRECTED PRN Saline Lock Insert [OM.PC] Urgent Oth 04/09/19 15:35 Ordered Resuscitation Status Routine Resus Stat 04/09/19 17:41 Ordered EKG 12 Lead [EK] Urgent Ther 04/09/19 15:35 Ordered Medication Orders Multivitamins/Minerals 10 ml/Thiamine HCl 100 mg/ Folic Acid 1 mg/ Magnesium Sulfate 3 gm/ Sodium Chloride 1,017.2 mls @ 999 mls/hr IV ASDIRECTED HARRY Last Admin: 04/09/19 16:27 Dose: 999 mls/hr Lactated Ringer's (Ringers, Lactated) 1,000 mls @ 999 mls/hr IV ASDIRECTED HARRY Stop: 04/09/19 18:31 Sodium Chloride (Saline Flush) 10 ml FLUSH ASDIRECTED PRN PRN Reason: Keep Vein Open Last Admin: 04/09/19 16:35 Dose: 10 ml Assessment/Plan Comment:: ASSESSMENT AND PLAN - Alcoholic hepatitis - bilirubin more than 7, long history of heavy alcohol use. Bilirubin is 3.6 just a couple of days ago. No significant right upper quadrant pain at this time. Discriminant function is not elevated enough to suggest benefit from steroids at this time. INR is normal. No evidence for impressive alcohol withdrawal at this time. -CIWAA Protocol with lorazepam if needed -Supplement thiamine and folate -Strongly encouraged complete cessation from alcohol -IV fluids -Repeat labs in the morning Acute pancreatitis - lipase level elevated at 3800. No evidence for gallstones on right upper quadrant ultrasound. Suspect alcohol-induced pancreatitis. Significant SIRS response at this time with a heart rate in the 135-145 range. -Aggressive IV fluids -symptomatic management of pain and/or nausea -Repeat labs in the morning Maintenance issues - - DVT prophylaxis - mechanical - GI prophylaxis - IV PPI - Nutrition - NPO - Youssef catheter - not indicated CODE STATUS - full code Admission justification - This patient will be admitted for inpatient services and is medically appropriate meeting medical necessity for inpatient admission as outlined in my documentation. I reasonably expect the patient will require inpatient services that span a period time over 2 midnights. I reasonably expect this patient to be discharged or transferred within 96 hours after admission to the [facility]. Disposition - I would anticipate discharge home after the hospital stay Primary care physician - ? Jl Manning M.D. - Mortality Measure Prognosis:: Poor
--- NOTE | 2019-04-09 18:05 | CRLUS ---
INDICATION: Fever, elevated bilirubin TECHNIQUE: Ultrasound abdomen limited. Sonographic images of the right upper quadrant were obtained using go-scale and color Doppler images. COMPARISON: None FINDINGS: Liver: Normal in size with diffuse fatty infiltration. No masses. No intrahepatic biliary dilatation. Gallbladder: Gallbladder sludge, no stones. Normal wall thickness. No pericholecystic fluid. Common bile duct: 4 mm. Pancreas: Normal. Pancreatic tail was not well visualized. Right kidney: 9.1 cm. Normal echotexture and cortex. No masses, stones, or hydronephrosis. Vasculature: Proximal IVC is normal. IMPRESSION: Gallbladder sludge in an otherwise normal-appearing gallbladder. Normal common bile duct. Diffuse fatty infiltration of the liver. Dictated by Romero Hwang MD @ 04/09/2019 6:03:07 PM Dictated by: Romero Hwang MD @ 04/09/2019 18:03:17 (Electronically Signed)
[2019-04-09] MEDS ORDERED: Pantoprazole 40 MG Vial IV ONE (19:13)
[2019-04-09] MEDS ORDERED: LORazepam 2 MG/ML SDV IV SCH (19:13)
[2019-04-09] MEDS ORDERED: Ondansetron 4 MG/2 ML SDV IV PRN (19:13)
[2019-04-09] MEDS ORDERED: Ondansetron 4 MG Tab.DIS PO PRN (19:13)
[2019-04-09] MEDS ORDERED: Acetaminophen 325 MG Tab PO PRN (19:13)
[2019-04-09] MEDS ORDERED: Ibuprofen 600 MG Tab PO PRN (19:13)
[2019-04-09] MEDS ORDERED: Morphine 2 MG/ML Syringe IVPUSH PRN (19:15)
[2019-04-09] MEDS: Sodium Chloride 0.9% 1,000 ML IV SCH (19:55)
[2019-04-09] MEDS: Melatonin 3 MG Tab PO SCH (20:02)
[2019-04-09] MEDS: Gabapentin 400 MG Cap PO SCH (20:03)
[2019-04-09] MEDS: LORazepam 1 MG Tab PO SCH (22:33)
[2019-04-10] MEDS: LORazepam 1 MG Tab PO SCH (00:21)
[2019-04-10] MEDS: Sodium Chloride 0.9% 1,000 ML IV SCH ×3 (02:48→19:05)
[2019-04-10] MEDS ORDERED: Pantoprazole 40 MG Tab.CR PO SCH (07:30)
[2019-04-10] MEDS: Pantoprazole 40 MG Vial IVPUSH SCH (08:31)
[2019-04-10] MEDS: Thiamine 100 MG Tab PO SCH (08:32)
[2019-04-10] MEDS: Folic Acid 1 MG Tab PO SCH (08:32)
[2019-04-10] MEDS: Gabapentin 400 MG Cap PO SCH ×3 (08:32→22:01)
[2019-04-10] MEDS: Potassium Chloride 20 MEQ, Lidocaine 1% 2 ML in Sodium Chloride 0.9% 100 ML IV SCH ×2 (08:56→11:05)
--- NOTE | 2019-04-10 09:46 | PCM.PN ---
- General Info Date of Service: 04/10/19 Subjective Update: There were no acute events overnight. Heart rate has been trending down but remains elevated between 110 and 120. He did not have any fevers overnight. Abdominal pain has decreased but has not resolved. He has not had any nausea or vomiting. He does not feel short of breath. Bilirubin has decreased to 5 and his lipase is down to 2600. Functional Status: Reports: Pain Controlled - Review of Systems General: Denies: Fever Gastrointestinal: Reports: Abdominal Pain Psychiatric: Denies: Agitation, Hallucinations - Patient Data Vitals - Most Recent: Last Vital Signs Temp 37.7 C 04/10/19 08:00 Pulse 132 H 04/10/19 08:00 Resp 26 H 04/10/19 08:00 BP 132/88 04/10/19 08:00 Pulse Ox 95 04/10/19 08:00 Weight - Most Recent: 77.9 kg I&O - Last 24 Hours: Intake & Output 04/09/19 04/10/19 04/10/19 22:59 06:59 14:59 Intake Total 1998 1255 Output Total 1700 Balance 1998 - Lab Results Last 24 Hours: Laboratory Results - last 24 hr 04/09/19 04/09/19 04/09/19 Range/Units 15:48 15:48 15:48 WBC 23.2 H (4.5-11.0) K/uL RBC 4.36 (4.30-5.90) M/uL Hgb 14.2 (12.0-15.0) g/dL Hct 42.6 (40.0-54.0) % MCV 98 (80-98) fL MCH 33 H (27-31) pg MCHC 33 (32-36) % Plt Count 221 (150-400) K/uL Add Manual Diff Yes Neutrophils % (Manual) 81 H (36-66) % Band Neutrophils % 2 L (5-11) % Lymphocytes % (Manual) 7 L (24-44) % Monocytes % (Manual) 9 H (2-6) % Eosinophils % (Manual) 1 L (2-4) % PT 12.1 H (9.5-12.0) sec INR 1.13 (0.80-1.20) Sodium 128 L (140-148) mmol/L Potassium 3.8 (3.6-5.2) mmol/L Chloride 89 L (100-108) mmol/L Carbon Dioxide 30 (21-32) mmol/L Anion Gap 12.8 (5.0-14.0) mmol/L BUN 11 D (7-18) mg/dL Creatinine 1.1 (0.8-1.3) mg/dL Est Cr Clr Drug Dosing 112.68 mL/min Estimated GFR (MDRD) > 60 (>60) Glucose 129 H (74-106) mg/dL Calcium 9.8 (8.5-10.1) mg/dL Magnesium (1.8-2.4) mg/dL Total Bilirubin 7.4 H D (0.2-1.0) mg/dL AST 126 H (15-37) U/L ALT 68 (12-78) U/L Alkaline Phosphatase 157 H (46-116) U/L Ammonia (11-32) mmol/L Total Protein 7.7 (6.4-8.2) g/dL Albumin 3.2 L (3.4-5.0) g/dL Globulin 4.5 H (2.3-3.5) g/dL Albumin/Globulin Ratio 0.7 L (1.2-2.2) Lipase (73-393) U/L Urine Color (YELLOW) Urine Appearance (CLEAR) Urine pH (5.0-8.0) Ur Specific [place] (1.008-1.030) Urine Protein Urine Glucose (UA) Urine Ketones Urine Occult Blood Urine Nitrite Urine Bilirubin Urine Urobilinogen Ur Leukocyte Esterase Urine RBC (0-5) Urine WBC (0-5) Ur Epithelial Cells Amorphous Sediment Urine Bacteria Urine Mucus Urine Opiates Screen (NEGATIVE) Ur Oxycodone Screen (NEGATIVE) Urine Methadone Screen (NEGATIVE) Ur Propoxyphene Screen (NEGATIVE) Ur Barbiturates Screen (NEGATIVE) Ur Tricyclics Screen (NEGATIVE) Ur Phencyclidine Scrn (NEGATIVE) Ur Amphetamine Screen (NEGATIVE) U Methamphetamines Scrn (NEGATIVE) Urine MDMA Screen (NEGATIVE) U Benzodiazepines Scrn (NEGATIVE) U Cocaine Metab Screen (NEGATIVE) U Marijuana (THC) Screen (NEGATIVE) 04/09/19 04/09/19 04/09/19 Range/Units 15:52 15:52 17:26 WBC (4.5-11.0) K/uL RBC (4.30-5.90) M/uL Hgb (12.0-15.0) g/dL Hct (40.0-54.0) % MCV (80-98) fL MCH (27-31) pg MCHC (32-36) % Plt Count (150-400) K/uL Add Manual Diff Neutrophils % (Manual) (36-66) % Band Neutrophils % (5-11) % Lymphocytes % (Manual) (24-44) % Monocytes % (Manual) (2-6) % Eosinophils % (Manual) (2-4) % PT (9.5-12.0) sec INR (0.80-1.20) Sodium (140-148) mmol/L Potassium (3.6-5.2) mmol/L Chloride (100-108) mmol/L Carbon Dioxide (21-32) mmol/L Anion Gap (5.0-14.0) mmol/L BUN (7-18) mg/dL Creatinine (0.8-1.3) mg/dL Est Cr Clr Drug Dosing mL/min Estimated GFR (MDRD) (>60) Glucose (74-106) mg/dL Calcium (8.5-10.1) mg/dL Magnesium (1.8-2.4) mg/dL Total Bilirubin (0.2-1.0) mg/dL AST (15-37) U/L ALT (12-78) U/L Alkaline Phosphatase (46-116) U/L Ammonia (11-32) mmol/L Total Protein (6.4-8.2) g/dL Albumin (3.4-5.0) g/dL Globulin (2.3-3.5) g/dL Albumin/Globulin Ratio (1.2-2.2) Lipase 3805 H (73-393) U/L Urine Color [place] A (YELLOW) Urine Appearance Slightly cloudy A (CLEAR) Urine pH 5.0 (5.0-8.0) Ur Specific [place] 1.025 (1.008-1.030) Urine Protein TNP Urine Glucose (UA) TNP Urine Ketones TNP Urine Occult Blood TNP Urine Nitrite TNP Urine Bilirubin TNP Urine Urobilinogen TNP Ur Leukocyte Esterase TNP Urine RBC 5-10 H (0-5) Urine WBC 0-5 (0-5) Ur Epithelial Cells Few Amorphous Sediment Not seen Urine Bacteria Rare Urine Mucus Moderate Urine Opiates Screen Negative (NEGATIVE) Ur Oxycodone Screen Negative (NEGATIVE) Urine Methadone Screen Negative (NEGATIVE) Ur Propoxyphene Screen Negative (NEGATIVE) Ur Barbiturates Screen Negative (NEGATIVE) Ur Tricyclics Screen Presumptive positive H (NEGATIVE) Ur Phencyclidine Scrn Negative (NEGATIVE) Ur Amphetamine Screen Negative (NEGATIVE) U Methamphetamines Scrn Negative (NEGATIVE) Urine MDMA Screen Negative (NEGATIVE) U Benzodiazepines Scrn Presumptive positive H (NEGATIVE) U Cocaine Metab Screen Negative (NEGATIVE) U Marijuana (THC) Screen Negative (NEGATIVE) 04/10/19 04/10/19 04/10/19 Range/Units 06:02 06:02 06:02 WBC 18.3 H (4.5-11.0) K/uL RBC 3.53 L (4.30-5.90) M/uL Hgb 11.5 L D (12.0-15.0) g/dL Hct 34.9 L (40.0-54.0) % MCV 99 H (80-98) fL MCH 33 H (27-31) pg MCHC 33 (32-36) % Plt Count 182 (150-400) K/uL Add Manual Diff Neutrophils % (Manual) (36-66) % Band Neutrophils % (5-11) % Lymphocytes % (Manual) (24-44) % Monocytes % (Manual) (2-6) % Eosinophils % (Manual) (2-4) % PT (9.5-12.0) sec INR (0.80-1.20) Sodium 133 L (140-148) mmol/L Potassium 3.4 L (3.6-5.2) mmol/L Chloride 98 L (100-108) mmol/L Carbon Dioxide 26 (21-32) mmol/L Anion Gap 12.4 (5.0-14.0) mmol/L BUN 7 (7-18) mg/dL Creatinine 0.9 (0.8-1.3) mg/dL Est Cr Clr Drug Dosing 137.72 mL/min Estimated GFR (MDRD) > 60 (>60) Glucose 127 H (74-106) mg/dL Calcium 8.6 (8.5-10.1) mg/dL Magnesium 2.1 (1.8-2.4) mg/dL Total Bilirubin 5.2 H (0.2-1.0) mg/dL AST 86 H (15-37) U/L ALT 47 (12-78) U/L Alkaline Phosphatase 131 H (46-116) U/L Ammonia 29 (11-32) mmol/L Total Protein 6.1 L (6.4-8.2) g/dL Albumin 2.4 L (3.4-5.0) g/dL Globulin 3.7 H (2.3-3.5) g/dL Albumin/Globulin Ratio 0.7 L (1.2-2.2) Lipase 2686 H (73-393) U/L Urine Color (YELLOW) Urine Appearance (CLEAR) Urine pH (5.0-8.0) Ur Specific [place] (1.008-1.030) Urine Protein Urine Glucose (UA) Urine Ketones Urine Occult Blood Urine Nitrite Urine Bilirubin Urine Urobilinogen Ur Leukocyte Esterase Urine RBC (0-5) Urine WBC (0-5) Ur Epithelial Cells Amorphous Sediment Urine Bacteria Urine Mucus Urine Opiates Screen (NEGATIVE) Ur Oxycodone Screen (NEGATIVE) Urine Methadone Screen (NEGATIVE) Ur Propoxyphene Screen (NEGATIVE) Ur Barbiturates Screen (NEGATIVE) Ur Tricyclics Screen (NEGATIVE) Ur Phencyclidine Scrn (NEGATIVE) Ur Amphetamine Screen (NEGATIVE) U Methamphetamines Scrn (NEGATIVE) Urine MDMA Screen (NEGATIVE) U Benzodiazepines Scrn (NEGATIVE) U Cocaine Metab Screen (NEGATIVE) U Marijuana (THC) Screen (NEGATIVE) Med Orders - Current: Current Medications Acetaminophen (Tylenol) 650 mg PO Q4H PRN PRN Reason: Pain (Mild 1-3)/fever Folic Acid (Folic Acid) 1 mg PO DAILY [facility] Last Admin: 04/10/19 08:32 Dose: 1 mg Gabapentin (Neurontin) 400 mg PO TID HARRY Last Admin: 04/10/19 08:32 Dose: 400 mg Sodium Chloride (Normal Saline) 1,000 mls @ 125 mls/hr IV ASDIRECTED HARRY Last Admin: 04/10/19 02:48 Dose: 125 mls/hr Potassium Chloride 20 meq/Lidocaine HCl 2 ml/ Sodium Chloride 112 mls @ 50 mls/ hr IV Q2H HARRY Stop: 04/10/19 12:59 Last Admin: 04/10/19 08:56 Dose: 50 mls/hr Lorazepam (Ativan) 0 mg PO ASDIRECTED HARRY; Protocol Last Admin: 04/10/19 00:21 Dose: 1 mg Lorazepam (Ativan) 0 mg IV ASDIRECTED [facility]; Protocol Melatonin (Melatonin) 9 mg PO BEDTIME [facility] Last Admin: 04/09/19 20:02 Dose: 9 mg Morphine Sulfate (Morphine) 2 mg IVPUSH Q2H PRN PRN Reason: Pain Ondansetron HCl (Zofran Odt) 4 mg PO Q6H PRN PRN Reason: Nausea able to take PO Ondansetron HCl (Zofran) 4 mg IV Q6H PRN PRN Reason: Nausea/Vomiting Pantoprazole Sodium (Protonix Iv) 40 mg IVPUSH DAILY@0730 [facility] Last Admin: 04/10/19 08:31 Dose: 40 mg Sodium Chloride (Saline Flush) 10 ml FLUSH ASDIRECTED PRN PRN Reason: Keep Vein Open Last Admin: 04/09/19 16:35 Dose: 10 ml Thiamine HCl (Vitamin B-1) 100 mg PO DAILY [facility] Last Admin: 04/10/19 08:32 Dose: 100 mg Discontinued Medications Multivitamins/Minerals 10 ml/Thiamine HCl 100 mg/ Folic Acid 1 mg/ Magnesium Sulfate 3 gm/ Sodium Chloride 1,017.2 mls @ 999 mls/hr IV ASDIRECTED [facility] Last Admin: 04/09/19 16:27 Dose: 999 mls/hr Lactated Ringer's (Ringers, Lactated) 1,000 mls @ 999 mls/hr IV ASDIRECTED [facility] Stop: 04/09/19 18:31 Lactated Ringer's (Ringers, Lactated) 1,000 mls @ 999 mls/hr IV ASDIRECTED [facility] Stop: 04/09/19 21:16 Lactated Ringer's (Ringers, Lactated) 1,000 mls @ 999 mls/hr IV ASDIRECTED [facility] Stop: 04/09/19 22:30 Last Admin: 04/09/19 20:15 Dose: 999 mls/hr Lactated Ringer's (Ringers, Lactated) 1,000 mls @ 999 mls/hr IV ASDIRECTED [facility] Stop: 04/09/19 22:46 Last Admin: 04/09/19 21:41 Dose: 999 mls/hr Ibuprofen (Motrin) 600 mg PO Q6H PRN PRN Reason: Pain/Fever Lorazepam (Ativan) 1 mg IVPUSH ONETIME ONE Stop: 04/09/19 15:37 Last Admin: 04/09/19 16:29 Dose: 1 mg Pantoprazole Sodium (Protonix Iv) 40 mg IV ONETIME ONE Stop: 04/09/19 19:14 Last Admin: 04/09/19 20:02 Dose: 40 mg Pantoprazole Sodium (Protonix) 40 mg PO ACBREAKFAST HARRY - Exam Quality Assessment: No: Supplemental Oxygen General: Alert, Oriented, Cooperative, No Acute Distress HEENT: Scleral Icterus Neck: Supple Lungs: Clear to Auscultation, Normal Respiratory Effort Cardiovascular: Regular Rhythm, Tachycardia GI/Abdominal Exam: Soft, No Distention, Tender Extremities: No Pedal Edema. No: Increased Warmth Skin: Warm, Dry Psy/Mental Status: Alert, Normal Affect - Problem List & Annotations (1) Alcoholic hepatitis without ascites SNOMED Code(s): 873075569 Code(s): K70.10 - ALCOHOLIC HEPATITIS WITHOUT ASCITES Status: Acute Current Visit: Yes (2) Acute pancreatitis without infection or necrosis SNOMED Code(s): 470437391 Code(s): K85.90 - ACUTE PANCREATITIS WITHOUT NECROSIS OR INFECTION, UNSP Status: Acute Current Visit: Yes Qualifiers: Pancreatitis type: alcohol induced Qualified Code(s): K85.20 - Alcohol induced acute pancreatitis without necrosis or infection - Problem List Review Problem List Initiated/Reviewed/Updated: Yes - My Orders Last 24 Hours: My Active Orders 04/09/19 17:41 Resuscitation Status Routine 04/09/19 19:13 Patient Status [ADT] Routine CIWAA Assessment [RC] Q1H Cardiac Monitoring [RC] CONTINUOUS Intake and Output [RC] QSHIFT Notify Provider Vital Signs [RC] ASDIRECTED Notify Provider [RC] PRN Oxygen Therapy [RC] PRN Pulse Oximetry [RC] CONTINUOUS Up With Assistance [RC] ASDIRECTED VTE/DVT Education [RC] Per Unit Routine Vital Signs [RC] Q2HR Acetaminophen [Tylenol] 650 mg PO Q4H PRN LORazepam [Ativan] See Protocol IV ASDIRECTED LORazepam [Ativan] See Protocol PO ASDIRECTED Ondansetron [Zofran ODT] 4 mg PO Q6H PRN Ondansetron [Zofran] 4 mg IV Q6H PRN Sodium Chloride 0.9% [Normal Saline] 1,000 ml IV ASDIRECTED Sequential Compression Device [OM.PC] Routine 04/09/19 19:15 Morphine 2 mg IVPUSH Q2H PRN 04/09/19 21:00 Gabapentin [Neurontin] 400 mg PO TID Melatonin 9 mg PO BEDTIME 04/10/19 07:30 Pantoprazole [ProTONIX IV] 40 mg IVPUSH DAILY@0730 04/10/19 09:00 Folic Acid 1 mg PO DAILY Potassium Chloride 20 meq Lidocaine 1% [Xylocaine 1%] 2 ml Sodium Chloride 0.9 % [Normal Saline] 100 ml IV Q2H Thiamine [Vitamin B-1] 100 mg PO DAILY 04/11/19 05:00 CBC W/O DIFF,HEMOGRAM [HEME] Timed (1) COMPREHENSIVE METABOLIC PN,CMP [CHEM] Timed LIPASE [CHEM] Timed - Plan Plan:: ASSESSMENT AND PLAN - Alcoholic hepatitis - bilirubin more than 7 at the time of admission but now down to 5. no evidence for alcohol withdrawal. No right upper quadrant pain at this time. -CIWAA Protocol with lorazepam if needed -Supplement thiamine and folate -Strongly encouraged complete cessation from alcohol -IV fluids -Repeat labs in the morning Acute pancreatitis secondary to alcohol - lipase level elevated at 3800 but has decreased to 2600. Pain is better but not resolved. Still tachycardic, especially when sitting up. -Continue IV fluids -symptomatic management of pain and/or nausea -Repeat labs in the morning Hypokalemia - mild reduction in potassium. -Supplement this morning and recheck tomorrow Maintenance issues - - DVT prophylaxis - mechanical - GI prophylaxis - IV PPI - Nutrition - NPO Disposition - I would anticipate discharge home after the hospital stay Jl Manning M.D.
[2019-04-10] MEDS: Melatonin 3 MG Tab PO SCH (22:01)
[2019-04-11] MEDS: Sodium Chloride 0.9% 1,000 ML IV SCH (03:06)
[2019-04-11] MEDS: Folic Acid 1 MG Tab PO SCH (08:22)
[2019-04-11] MEDS: Gabapentin 400 MG Cap PO SCH ×3 (08:22→21:35)
[2019-04-11] MEDS: Pantoprazole 40 MG Vial IVPUSH SCH (08:22)
[2019-04-11] MEDS: Thiamine 100 MG Tab PO SCH (08:22)
--- NOTE | 2019-04-11 09:53 | PCM.PN ---
- General Info Date of Service: 04/11/19 Subjective Update: Mr. Chance is been stable since yesterday, currently denies pain. Intermittently he still tachycardic, otherwise hemodynamically stable. Further improvement in bilirubin level and lipase level over the last 24 hours. Functional Status: Reports: Pain Controlled, Ambulating, Urinating - Review of Systems General: Reports: No Symptoms Cardiovascular: Reports: No Symptoms Gastrointestinal: Reports: No Symptoms Genitourinary: Reports: No Symptoms - Patient Data Vitals - Most Recent: Last Vital Signs Temp 98.9 F 04/11/19 06:00 Pulse 84 04/11/19 08:00 Resp 18 04/11/19 08:00 BP 143/98 H 04/11/19 08:00 Pulse Ox 94 L 04/11/19 08:00 Weight - Most Recent: 171 lb 11.841 oz I&O - Last 24 Hours: Intake & Output 04/10/19 04/11/19 04/11/19 22:59 06:59 14:59 Intake Total 1649 1220 Output Total 1300 750 800 Balance 349 470 -800 Lab Results Last 24 Hours: Laboratory Results - last 24 hr 04/11/19 04/11/19 Range/Units 05:16 05:16 WBC 11.6 H (4.5-11.0) K/uL RBC 3.42 L (4.30-5.90) M/uL Hgb 11.1 L (12.0-15.0) g/dL Hct 34.4 L (40.0-54.0) % MCV 101 H (80-98) fL MCH 33 H (27-31) pg MCHC 32 (32-36) % Plt Count 204 (150-400) K/uL Sodium 135 L (140-148) mmol/L Potassium 4.0 (3.6-5.2) mmol/L Chloride 101 (100-108) mmol/L Carbon Dioxide 24 (21-32) mmol/L Anion Gap 14.0 (5.0-14.0) mmol/L BUN 7 (7-18) mg/dL Creatinine 0.7 L (0.8-1.3) mg/dL Est Cr Clr Drug Dosing 177.06 mL/min Estimated GFR (MDRD) > 60 (>60) Glucose 95 (74-106) mg/dL Calcium 8.9 (8.5-10.1) mg/dL Total Bilirubin 4.8 H (0.2-1.0) mg/dL AST 93 H (15-37) U/L ALT 49 (12-78) U/L Alkaline Phosphatase 148 H (46-116) U/L Total Protein 6.5 (6.4-8.2) g/dL Albumin 2.4 L (3.4-5.0) g/dL Globulin 4.1 H (2.3-3.5) g/dL Albumin/Globulin Ratio 0.6 L (1.2-2.2) Lipase 1929 H (73-393) U/L Med Orders - Current: Current Medications Acetaminophen (Tylenol) 650 mg PO Q4H PRN PRN Reason: Pain (Mild 1-3)/fever Folic Acid (Folic Acid) 1 mg PO DAILY [facility] Last Admin: 04/11/19 08:22 Dose: 1 mg Gabapentin (Neurontin) 400 mg PO TID [facility] Last Admin: 04/11/19 08:22 Dose: 400 mg Lorazepam (Ativan) 0 mg PO ASDIRECTED [facility]; Protocol Last Admin: 04/10/19 00:21 Dose: 1 mg Lorazepam (Ativan) 0 mg IV ASDIRECTED [facility]; Protocol Melatonin (Melatonin) 9 mg PO BEDTIME [facility] Last Admin: 04/10/19 22:01 Dose: 9 mg Morphine Sulfate (Morphine) 2 mg IVPUSH Q2H PRN PRN Reason: Pain Ondansetron HCl (Zofran Odt) 4 mg PO Q6H PRN PRN Reason: Nausea able to take PO Ondansetron HCl (Zofran) 4 mg IV Q6H PRN PRN Reason: Nausea/Vomiting Pantoprazole Sodium (Protonix Iv) 40 mg IVPUSH DAILY@0730 [facility] Last Admin: 04/11/19 08:22 Dose: 40 mg Sodium Chloride (Saline Flush) 10 ml FLUSH ASDIRECTED PRN PRN Reason: Keep Vein Open Last Admin: 04/09/19 16:35 Dose: 10 ml Thiamine HCl (Vitamin B-1) 100 mg PO DAILY [facility] Last Admin: 04/11/19 08:22 Dose: 100 mg Discontinued Medications Multivitamins/Minerals 10 ml/Thiamine HCl 100 mg/ Folic Acid 1 mg/ Magnesium Sulfate 3 gm/ Sodium Chloride 1,017.2 mls @ 999 mls/hr IV ASDIRECTED [facility] Last Admin: 04/09/19 16:27 Dose: 999 mls/hr Lactated Ringer's (Ringers, Lactated) 1,000 mls @ 999 mls/hr IV ASDIRECTED [facility]ARRY Stop: 04/09/19 18:31 Sodium Chloride (Normal Saline) 1,000 mls @ 125 mls/hr IV ASDIRECTED [facility] Last Admin: 04/11/19 03:06 Dose: 125 mls/hr Lactated Ringer's (Ringers, Lactated) 1,000 mls @ 999 mls/hr IV ASDIRECTED [facility]ARR[facility] Stop: 04/09/19 21:16 Lactated Ringer's (Ringers, Lactated) 1,000 mls @ 999 mls/hr IV ASDIRECTED [facility] Stop: 04/09/19 22:30 Last Admin: 04/09/19 20:15 Dose: 999 mls/hr Lactated Ringer's (Ringers, Lactated) 1,000 mls @ 999 mls/hr IV ASDIRECTED [facility] Stop: 04/09/19 22:46 Last Admin: 04/09/19 21:41 Dose: 999 mls/hr Potassium Chloride 20 meq/Lidocaine HCl 2 ml/ Sodium Chloride 112 mls @ 50 mls/ hr IV Q2H [facility] Stop: 04/10/19 12:59 Last Admin: 04/10/19 11:05 Dose: 50 mls/hr Ibuprofen (Motrin) 600 mg PO Q6H PRN PRN Reason: Pain/Fever Lorazepam (Ativan) 1 mg IVPUSH ONETIME ONE Stop: 04/09/19 15:37 Last Admin: 04/09/19 16:29 Dose: 1 mg Pantoprazole Sodium (Protonix Iv) 40 mg IV ONETIME ONE Stop: 04/09/19 19:14 Last Admin: 04/09/19 20:02 Dose: 40 mg Pantoprazole Sodium (Protonix) 40 mg PO ACBREAKFAST [facility] - Exam General: Alert, Oriented, Cooperative, No Acute Distress Lungs: Clear to Auscultation, Normal Respiratory Effort Cardiovascular: Regular Rate, Regular Rhythm, No Murmurs GI/Abdominal Exam: Soft, Non-Tender, No Organomegaly, No Distention Extremities: Normal Inspection, No Pedal Edema - Problem List Review Problem List Initiated/Reviewed/Updated: Yes - My Orders Last 24 Hours: My Active Orders 04/11/19 09:48 Convert IV to Saline Lock [OM.PC] Routine 04/11/19 Breakfast Regular Diet [DIET] 04/12/19 05:00 CBC WITH AUTO DIFF [HEME] Timed COMPREHENSIVE METABOLIC PN,CMP [CHEM] Timed LIPASE [CHEM] Timed - Plan Plan:: ASSESSMENT AND PLAN - Alcoholic hepatitis - bilirubin more than 7 at the time of admission but now down to 4.8. no evidence for alcohol withdrawal. No right upper quadrant pain at this time. -CIWAA Protocol with lorazepam if needed -Supplement thiamine and folate -Strongly encouraged complete cessation from alcohol -Saline lock IV -Repeat labs in the morning Acute pancreatitis secondary to alcohol - lipase level elevated at 3800 but has decreased to 1800. Pain has resolved. -Regular diet -symptomatic management of pain and/or nausea -Repeat labs in the morning Hypokalemia - mild reduction in potassium. -Supplement this morning and recheck tomorrow Maintenance issues - - DVT prophylaxis - mechanical - GI prophylaxis - IV PPI - Nutrition - NPO Disposition - I would anticipate discharge home after the hospital stay
[2019-04-11] MEDS: Melatonin 3 MG Tab PO SCH (21:35)
[2019-04-12] MEDS ORDERED: Pantoprazole 40 MG Tab.CR PO SCH (09:00)
[2019-04-12] MEDS: Folic Acid 1 MG Tab PO SCH (09:07)
[2019-04-12] MEDS: Gabapentin 400 MG Cap PO SCH ×2 (09:07→13:16)
[2019-04-12] MEDS: Thiamine 100 MG Tab PO SCH (09:08)
[2019-04-12] MEDS: Pantoprazole 40 MG Vial IVPUSH SCH (09:55)
[2019-04-12] MEDS ORDERED: Potassium Chloride 20 MEQ Tab.ER PO ONE (10:00)
--- NOTE | 2019-04-12 11:57 | PCM.DCSUM1 ---
Discharge Summary - Hospital Course Brief History: Mr. Chance is a 23-year-old gentleman who was admitted through the emergency department with abdominal pain, nausea, vomiting, secondary to acute alcoholic hepatitis and pancreatitis. - Discharge Data Discharge Date: 04/12/19 Discharge Disposition: Home, Self-Care 01 Condition: Stable - Referral to Home Health Primary Care Physician: PCP None - Discharge Diagnosis/Problem(s) (1) Alcoholic gastritis SNOMED Code(s): 3472444 ICD Code: K29.20 - ALCOHOLIC GASTRITIS WITHOUT BLEEDING Status: Acute Current Visit: No Qualifiers: Chronicity: acute Gastritis bleeding: without bleeding Qualified Code(s) : K29.20 - Alcoholic gastritis without bleeding (2) Alcohol withdrawal SNOMED Code(s): 148915955 ICD Code: F10.239 - ALCOHOL DEPENDENCE WITH WITHDRAWAL, UNSPECIFIED Status : Acute Current Visit: Yes (3) Alcoholic hepatitis without ascites SNOMED Code(s): 160462233 ICD Code: K70.10 - ALCOHOLIC HEPATITIS WITHOUT ASCITES Status: Acute Current Visit: Yes (4) Acute pancreatitis without infection or necrosis SNOMED Code(s): 646289806 ICD Code: K85.90 - ACUTE PANCREATITIS WITHOUT NECROSIS OR INFECTION, UNSP Status: Acute Current Visit: Yes Qualifiers: Pancreatitis type: alcohol induced Qualified Code(s): K85.20 - Alcohol induced acute pancreatitis without necrosis or infection (5) Alcohol abuse SNOMED Code(s): 80035463 ICD Code: F10.10 - ALCOHOL ABUSE, UNCOMPLICATED Status: Acute Current Visit: No - Patient Summary/Data Hospital Course: Mr. Chance presented to the emergency room from detox with a sensation that his heart is racing as well as some abdominal pain and nausea. He reports that he has not been feeling well for the past couple of weeks with a slow progression. Initially it was difficulty with numbness and tingling in his fingers and his face. This sensation would come and go and has improved since that time. Over the past week he has had increased abdominal distention as well as some episodes of abdominal pain. He describes a mild to moderate achy pain that starts in the left upper quadrant or epigastrium and radiates to the left and down. Pain does get worse when he eats. Pain is worse when he presses on the abdomen. Pain does get better over time but he hasn't found anything to make the pain better necessarily. He has not had any hallucinations. He doesn't feel shaky. He does feel weak and feels tired. His dad noticed jaundice about one week ago but it's been worse the last few days. His abdominal pain has been getting worse. He was seen here yesterday for the abdominal pain and was thought to be related to gastritis. In the emergency room he was noted to be tachycardic with a heart rate in the 140s. Blood pressure is stable. Laboratory studies revealed significant leukocytosis with a white blood cell count more than 20,000. His bilirubin 7 and his lipase is more than 3000. Ultrasound of the right upper quadrant did not show any gallstones. He did have diffuse hepatitis. He will be receiving additional fluid boluses and will be admitted to the intensive care unit for management of pancreatitis and alcoholic hepatitis. With infusion of IV fluids heart rate normalized over the next few days of hospitalization. He showed no overt evidence of significant alcohol withdrawal and had been started on gabapentin 400 mg every 8 hours as well as alcohol withdrawal protocol. His abdominal pain and nausea gradually resolved and by the time of discharge he was tolerating a regular diet. Lipase level on admission was elevated at 3800 and by the time of discharge had dropped to 1688. Bilirubin was elevated on admission at 7.4 and had improved to 3.1 by the time of discharge. Outpatient alcohol treatment will be arranged for the patient. He is instructed to avoid all further alcohol use. Activity will be as tolerated and he will resume a regular diet. Follow-up appointment will be scheduled with primary care provider for April 15, liver profile and lipase level should be obtained at the time of follow-up appointment. He will be discharged on gabapentin 200 mg every 8 hours for an additional 4 days. - Patient Instructions Diet: Usual Diet as Tolerated, No Alcoholic Beverages Activity: As Tolerated Other/Special Instructions: Please arrange for outpatient alcohol treatment. Schedule follow-up appointment with primary care provider within one week. Liver profile and lipase level should be obtained at the time of follow-up appointment. - Discharge Plan *PRESCRIPTION DRUG MONITORING PROGRAM REVIEWED*: Not Applicable *COPY OF PRESCRIPTION DRUG MONITORING REPORT IN PATIENT [place]ENJAMIN: Not Applicable Prescriptions/Med Rec: Gabapentin [Neurontin] 200 mg PO Q8H #24 cap Home Medications: Home Meds Famotidine 40 mg PO DAILY #30 tablet 04/08/19 [Rx] Potassium Chloride [Klor-Con] 20 meq PO DAILY 04/08/19 [History] Gabapentin [Neurontin] 200 mg PO Q8H #24 cap 04/12/19 [Rx] Referrals: Deidre Thomas DO [Physician] - 04/15/19 1:30 pm (Please arrive at 1245 to register for your appointment. Lab appointment at 1:00 pm before your appointment with .) - Discharge Summary/Plan Comment DC Time >30 min.: No - Patient Data Vitals - Most Recent: Last Vital Signs Temp 98.6 F 04/12/19 09:58 Pulse 67 04/12/19 09:58 Resp 19 04/12/19 06:00 BP 140/86 04/12/19 06:00 Pulse Ox 97 04/12/19 09:58 Weight - Most Recent: 171 lb 11.841 oz I&O - Last 24 hours: Intake & Output 04/11/19 04/12/19 04/12/19 22:59 06:59 14:59 Intake Total 250 600 Output Total 1100 Balance -850 600 Lab Results - Last 24 hrs: Laboratory Results - last 24 hr 04/12/19 04/12/19 Range/Units 04:45 04:45 WBC 8.6 (4.5-11.0) K/uL RBC 3.47 L (4.30-5.90) M/uL Hgb 11.3 L (12.0-15.0) g/dL Hct 34.6 L (40.0-54.0) % MCV 100 H (80-98) fL MCH 33 H (27-31) pg MCHC 33 (32-36) % Plt Count 274 (150-400) K/uL Neut % (Auto) 57 (36-66) % Lymph % (Auto) 21 L (24-44) % [place] % (Auto) 18 H (2-6) % Eos % (Auto) 4 (2-4) % Baso % (Auto) 1 (0-1) % Sodium 136 L (140-148) mmol/L Potassium 3.4 L (3.6-5.2) mmol/L Chloride 100 (100-108) mmol/L Carbon Dioxide 25 (21-32) mmol/L Anion Gap 14.4 H (5.0-14.0) mmol/L BUN 7 (7-18) mg/dL Creatinine 0.8 (0.8-1.3) mg/dL Est Cr Clr Drug Dosing 155.15 mL/min Estimated GFR (MDRD) > 60 (>60) Glucose 112 H (74-106) mg/dL Calcium 9.3 (8.5-10.1) mg/dL Total Bilirubin 3.1 H (0.2-1.0) mg/dL AST 104 H (15-37) U/L ALT 60 (12-78) U/L Alkaline Phosphatase 169 H (46-116) U/L Total Protein 7.0 (6.4-8.2) g/dL Albumin 2.5 L (3.4-5.0) g/dL Globulin 4.5 H (2.3-3.5) g/dL Albumin/Globulin Ratio 0.6 L (1.2-2.2) Lipase 1688 H (73-393) U/L Med Orders - Current: Current Medications Acetaminophen (Tylenol) 650 mg PO Q4H PRN PRN Reason: Pain (Mild 1-3)/fever Folic Acid (Folic Acid) 1 mg PO DAILY [facility] Last Admin: 04/12/19 09:07 Dose: 1 mg Gabapentin (Neurontin) 400 mg PO TID [facility] Last Admin: 04/12/19 09:07 Dose: 400 mg Lorazepam (Ativan) 0 mg PO ASDIRECTED [facility]; Protocol Last Admin: 04/10/19 00:21 Dose: 1 mg Lorazepam (Ativan) 0 mg IV ASDIRECTED [facility]; Protocol Melatonin (Melatonin) 9 mg PO BEDTIME [facility] Last Admin: 04/11/19 21:35 Dose: 9 mg Morphine Sulfate (Morphine) 2 mg IVPUSH Q2H PRN PRN Reason: Pain Ondansetron HCl (Zofran Odt) 4 mg PO Q6H PRN PRN Reason: Nausea able to take PO Ondansetron HCl (Zofran) 4 mg IV Q6H PRN PRN Reason: Nausea/Vomiting Pantoprazole Sodium (Protonix) 40 mg PO ACBREAKFAST [facility] Last Admin: 04/12/19 09:07 Dose: 40 mg Sodium Chloride (Saline Flush) 10 ml FLUSH ASDIRECTED PRN PRN Reason: Keep Vein Open Last Admin: 04/09/19 16:35 Dose: 10 ml Thiamine HCl (Vitamin B-1) 100 mg PO DAILY [facility] Last Admin: 04/12/19 09:08 Dose: 100 mg Discontinued Medications Multivitamins/Minerals 10 ml/Thiamine HCl 100 mg/ Folic Acid 1 mg/ Magnesium Sulfate 3 gm/ Sodium Chloride 1,017.2 mls @ 999 mls/hr IV ASDIRECTED [facility] Last Admin: 04/09/19 16:27 Dose: 999 mls/hr Lactated Ringer's (Ringers, Lactated) 1,000 mls @ 999 mls/hr IV ASDIRECTED [facility] Stop: 04/09/19 18:31 Sodium Chloride (Normal Saline) 1,000 mls @ 125 mls/hr IV ASDIRECTED [facility] Last Admin: 04/11/19 03:06 Dose: 125 mls/hr Lactated Ringer's (Ringers, Lactated) 1,000 mls @ 999 mls/hr IV ASDIRECTED [facility] Stop: 04/09/19 21:16 Lactated Ringer's (Ringers, Lactated) 1,000 mls @ 999 mls/hr IV ASDIRECTED [facility] Stop: 04/09/19 22:30 Last Admin: 04/09/19 20:15 Dose: 999 mls/hr Lactated Ringer's (Ringers, Lactated) 1,000 mls @ 999 mls/hr IV ASDIRECTED [facility] Stop: 04/09/19 22:46 Last Admin: 04/09/19 21:41 Dose: 999 mls/hr Potassium Chloride 20 meq/Lidocaine HCl 2 ml/ Sodium Chloride 112 mls @ 50 mls/ hr IV Q2H [facility] Stop: 04/10/19 12:59 Last Admin: 04/10/19 11:05 Dose: 50 mls/hr Ibuprofen (Motrin) 600 mg PO Q6H PRN PRN Reason: Pain/Fever Lorazepam (Ativan) 1 mg IVPUSH ONETIME ONE Stop: 04/09/19 15:37 Last Admin: 04/09/19 16:29 Dose: 1 mg Pantoprazole Sodium (Protonix Iv) 40 mg IV ONETIME ONE Stop: 04/09/19 19:14 Last Admin: 04/09/19 20:02 Dose: 40 mg Pantoprazole Sodium (Protonix) 40 mg PO ACBREAKFAST [facility] Pantoprazole Sodium (Protonix Iv) 40 mg IVPUSH DAILY@0730 [facility] Last Admin: 04/12/19 09:55 Dose: Not Given Potassium Chloride (Klor-Con M20) 40 meq PO ONETIME ONE Stop: 04/12/19 10:01 Last Admin: 04/12/19 10:06 Dose: 40 meq - Exam General: Reports: Alert, Oriented, Cooperative, No Acute Distress Lungs: Reports: Clear to Auscultation, Normal Respiratory Effort Cardiovascular: Reports: Regular Rate, Regular Rhythm, No Murmurs GI/Abdominal Exam: Soft, Non-Tender, No Organomegaly, No Distention
== END 2019-04-12 15:01 | disposition home or self-care (01) | DRG 432 ==
LOC: JP.ED 14:40 → JP.ICU 17:39
PROVIDERS: ADMIT Internal Medicine; ATTEND Hospitalist
PROC: HZ2ZZZZ Detoxification Services for Substance Abuse Treatment (ICD-10-PCS; principal; 2019-04-09)
DX: K70.10 Alcoholic hepatitis without ascites (principal); K85.20 Alcohol induced acute pancreatitis without necrosis or infection; F10.288 Alcohol dependence with other alcohol-induced disorder; F10.239 Alcohol dependence with withdrawal, unspecified; K29.20 Alcoholic gastritis without bleeding; E87.6 Hypokalemia; Z79.899 Other long term (current) drug therapy
CPT/HCPCS: 36415; 76705; 80053; 80305-QW; 81001; 82140; 83690; 83735; 85025; 85027; 85610; 93005; 96365; 96375; 99285-25; A9270-GY; C9113; J2001; J2060; J3411; J3475; J3480; J3490; J7030; J7120

== ENCOUNTER 2022-09-04 09:30 | Day surgery (SDC) | payer MEDICAID ==
[2022-09-04] MEDS ORDERED: Propofol 200 MG/20 ML SDV ONE ×3 (09:44→11:38)
[2022-09-04] MEDS ORDERED: fentaNYL 100 MCG/2 ML SDV ONE ×2 (09:44→11:31)
[2022-09-04] MEDS ORDERED: Midazolam 1 MG/ML 2 ML SDV ONE ×2 (09:44→11:31)
[2022-09-04] MEDS ORDERED: Ketorolac 30 MG/ML SDV ONE ×2 (09:58→11:44)
[2022-09-04 10:17] LABS: ESTIMATED GFR 124 mL/min (>60)
[2022-09-04] MEDS ORDERED: Sodium Chloride 0.9% 1,000 ML IV SCH (10:30)
[2022-09-04] MEDS ORDERED: Bupivacaine 0.5%/EPINEPHrine 1:200,000 50 ML MDV ONE (10:31)
[2022-09-04] MEDS ORDERED: metroNIDAZOLE/Normal Saline 500 MG in Premix Bag 1 BAG IV ONE (11:10)
[2022-09-04] MEDS ORDERED: ceFAZolin 2 GM in Sodium Chloride 0.9% 50 ML IV ONE (11:15)
[2022-09-04] MEDS ORDERED: Ropivacaine 32 ML, dexAMETHasone 8 MG, EPINEPHrine 0.4 MG, Sodium Chloride 0.9% 45.6 ML NERVRT SCH ×4 (11:15)
[2022-09-04] MEDS ORDERED: Bupivacaine 0.5%/EPINEPHrine 1:200,000 50 ML MDV INJECT ONE ×2 (11:40)
== END 2022-09-04 13:00 | disposition home or self-care (01) ==
LOC: JP.SDS 09:30
PROVIDERS: ATTEND Surgery
DX: K42.9 Umbilical hernia without obstruction or gangrene (principal); Z79.899 Other long term (current) drug therapy
CPT/HCPCS: 36415; 49591; 80053; 85027; J0171; J0690; J1100; J1885; J2250; J2704; J2795; J3010; J3490; J7030

== ENCOUNTER 2024-06-29 10:47 | Inpatient (IN) | payer MEDICAID ==
[2024-06-29 11:36] LABS: BASOPHILS PERCENT AUTO 0.3 % (0.1-1.3); EOSINOPHILS ABSOLUTE AUTO 0.17 K/uL (0.00-0.40); EOSINOPHILS PERCENT AUTO 2.9 % (0.0-5.4); HEMATOCRIT 40.4 % (38.4-49.7); HEMOGLOBIN 14.6 g/dL (12.9-16.9); IMMATURE GRAN ABSOLUTE AUTO 0.03 K/uL (0.00-0.23); IMMATURE GRAN PERCENT AUTO 0.5 % (0.0-0.7); LYMPHOCYTES ABSOLUTE AUTO 0.61 K/uL (0.8-3.3); LYMPHOCYTES PERCENT AUTO 10.5 % (11.4-47.7); MEAN CORPUSCULAR HEMOGLOBIN 31.5 pg (31.6-35.5); MEAN CORPUSCULAR HGB CONC 36.1 g/dL (31.6-35.5); MEAN CORPUSCULAR VOLUME 87.3 fL (81.4-99.0); MONOCYTES ABSOLUTE AUTO 0.46 K/uL (0.20-0.90); MONOCYTES PERCENT AUTO 7.9 % (3.3-12.6); NEUTROPHILS ABSOLUTE AUTO 4.52 K/uL (1.0-7.6); NEUTROPHILS PERCENT AUTO 77.9 % (40.0-78.1); RED BLOOD CELL COUNT 4.63 M/uL (4.14-5.76); WHITE BLOOD CELL COUNT,WBC 5.8 K/uL (3.2-11.0)
[2024-06-29 11:39] LABS: BASOPHILS ABSOLUTE AUTO 0.02 K/uL (0.00-0.10); PLATELET COUNT,PLT 28 K/uL (130-375)
[2024-06-29] MEDS: LORazepam 2 MG/ML SDV IVPUSH ONE (11:46)
[2024-06-29 11:55] LABS: ALANINE AMINOTRANSFERASE,ALT 116 U/L (12-78); ALBUMIN 4.1 g/dL (3.4-5.0); ALKALINE PHOSPHATASE 129 U/L (46-116); ASPARTATE AMNIOTRANSFERASE,AST 222 U/L (15-37); BILIRUBIN TOTAL 2.1 mg/dL (0.2-1.0); BLOOD UREA NITROGEN,BUN 9 mg/dL (7-18); CALCIUM 9.8 mg/dL (8.5-10.1); CARBON DIOXIDE,CO2 36 mmol/L (21-32); CHLORIDE,CL 87 mmol/L (100-108); CREATININE 1.1 mg/dL (0.8-1.3); EST CRCL DRUG DOSING (CG) 103.95 mL/min; ESTIMATED GFR 93 mL/min (>60); GLUCOSE RANDOM 224 mg/dL (74-106); PROTEIN TOTAL,TP 8.2 g/dL (6.4-8.2); SODIUM,NA 131 mmol/L (140-148)
[2024-06-29 11:56] LABS: ANION GAP 10.7 mmol/L (5.0-14.0); POTASSIUM,K 2.7 mmol/L (3.6-5.2)
[2024-06-29] MEDS ORDERED: Potassium Chloride 20 MEQ in Premix Bag 1 BAG IV ONE (11:58)
[2024-06-29] MEDS: Potassium Chloride 20 MEQ Tab.ER PO ONE ×3 (12:12→19:15)
[2024-06-29] MEDS: Sodium Chloride 0.9% 1,000 ML IV SCH ×2 (12:12→14:21)
[2024-06-29] MEDS: Potassium Chloride 10 MEQ in Premix Bag 1 BAG IV SCH (12:13)
[2024-06-29 13:09] LABS: INR 1.1; PROTHROMBIN TIME 10.8 sec (9.2-10.6)
[2024-06-29] MEDS ORDERED: PHENobarbital 32.4 MG Tab PO PRN (13:58)
[2024-06-29] MEDS ORDERED: Ondansetron 4 MG/2 ML SDV IV PRN (13:58)
[2024-06-29] MEDS ORDERED: LORazepam 1 MG Tab PO PRN ×2 (13:58)
[2024-06-29] MEDS ORDERED: Acetaminophen 325 MG Tab PO PRN (13:58)
[2024-06-29] MEDS ORDERED: Polyethylene Glycol 3350 Powder 17 GM Packet PO PRN (13:58)
[2024-06-29] MEDS ORDERED: Sodium Chloride 0.9% 10 ML Syringe FLUSH PRN (13:58)
[2024-06-29] MEDS: Gabapentin 400 MG Cap PO ONE (14:50)
[2024-06-29] MEDS: Multivitamins with Iron Tab.Chew CHEW SCH (14:50)
[2024-06-29] MEDS: Folic Acid 1 MG Tab PO SCH (14:51)
[2024-06-29] MEDS: Pantoprazole 40 MG Tab.CR PO SCH (15:42)
[2024-06-29] MEDS: Nicotine 7 MG/24 Hr Patch TRDERM SCH (15:42)
[2024-06-29] MEDS: chlordiazePOXIDE 25 MG Cap PO SCH (15:42)
[2024-06-29] MEDS: Gabapentin 300 MG Cap PO SCH (20:40)
[2024-06-29] MEDS: Thiamine 100 MG Tab PO SCH (20:40)
[2024-06-30 05:12] LABS: HEMATOCRIT 36.1 % (38.4-49.7); HEMOGLOBIN 12.5 g/dL (12.9-16.9); MEAN CORPUSCULAR HEMOGLOBIN 31.3 pg (31.6-35.5); MEAN CORPUSCULAR HGB CONC 34.6 g/dL (31.6-35.5); MEAN CORPUSCULAR VOLUME 90.3 fL (81.4-99.0); WHITE BLOOD CELL COUNT,WBC 5.1 K/uL (3.2-11.0)
[2024-06-30 05:34] LABS: ALANINE AMINOTRANSFERASE,ALT 99 U/L (12-78); ALBUMIN 3.3 g/dL (3.4-5.0); ALKALINE PHOSPHATASE 108 U/L (46-116); ASPARTATE AMNIOTRANSFERASE,AST 178 U/L (15-37); BLOOD UREA NITROGEN,BUN 7 mg/dL (7-18); CALCIUM 8.7 mg/dL (8.5-10.1); CARBON DIOXIDE,CO2 32 mmol/L (21-32); CHLORIDE,CL 97 mmol/L (100-108); CREATININE 0.8 mg/dL (0.8-1.3); EST CRCL DRUG DOSING (CG) 127.51 mL/min; ESTIMATED GFR 122 mL/min (>60); GLUCOSE RANDOM 110 mg/dL (74-106); POTASSIUM,K 3.5 mmol/L (3.6-5.2); PROTEIN TOTAL,TP 6.7 g/dL (6.4-8.2); SODIUM,NA 135 mmol/L (140-148)
[2024-06-30 05:38] LABS: ANION GAP 9.5 mmol/L (5.0-14.0)
[2024-06-30] MEDS: Potassium Chloride 20 MEQ Tab.ER PO ONE ×2 (09:21→17:21)
[2024-06-30] MEDS: Iopamidol 612 MG/ML 100 ML Bottle IV ONE (10:37)
[2024-06-30] MEDS: Sodium Chloride 0.9% 80 ML IV SCH (10:37)
[2024-06-30] MEDS: Nicotine 14 MG/24 Hr Patch TRDERM SCH (14:49)
[2024-06-30] MEDS: Magnesium Oxide 400 MG Tab PO SCH (14:50)
[2024-06-30] MEDS: Magnesium Sulfate/Water Premix 2 GM in Premix Bag 1 BAG IV SCH (14:51)
[2024-06-30] MEDS: chlordiazePOXIDE 25 MG Cap PO SCH (15:03)
[2024-06-30] MEDS: Nicotine Polacrilex 2 MG Gum CHEW PRN (17:24)
[2024-07-01 05:12] LABS: HEMATOCRIT 39.6 % (38.4-49.7); HEMOGLOBIN 13.8 g/dL (12.9-16.9); MEAN CORPUSCULAR HEMOGLOBIN 31.3 pg (31.6-35.5); MEAN CORPUSCULAR HGB CONC 34.8 g/dL (31.6-35.5); MEAN CORPUSCULAR VOLUME 89.8 fL (81.4-99.0); RED BLOOD CELL COUNT 4.41 M/uL (4.14-5.76); WHITE BLOOD CELL COUNT,WBC 6.1 K/uL (3.2-11.0)
[2024-07-01 05:28] LABS: CALCIUM 9.1 mg/dL (8.5-10.1); CREATININE 0.8 mg/dL (0.8-1.3); EST CRCL DRUG DOSING (CG) 127.57 mL/min; MAGNESIUM 2.1 mg/dL (1.8-2.4); POTASSIUM,K 4.2 mmol/L (3.6-5.2)
[2024-07-01 05:36] LABS: ANION GAP 12.2 mmol/L (5.0-14.0)
[2024-07-01] MEDS ORDERED: Gabapentin 400 MG Cap PO SCH (22:00)
[2024-07-02] MEDS ORDERED: Gabapentin 400 MG Cap PO SCH (21:00)
[2024-07-03] MEDS ORDERED: Gabapentin 300 MG Cap PO SCH (21:00)
== END 2024-07-01 09:48 | disposition home or self-care (01) | DRG 897 ==
LOC: JP.ED 10:47 → JP.ICU 13:00
PROVIDERS: ADMIT Hospitalist; ATTEND Hospitalist
DX: F10.239 Alcohol dependence with withdrawal, unspecified (principal); H54.7 Unspecified visual loss; K58.9 Irritable bowel syndrome, unspecified; F17.210 Nicotine dependence, cigarettes, uncomplicated; F12.90 Cannabis use, unspecified, uncomplicated; E87.6 Hypokalemia; R56.9 Unspecified convulsions; D69.6 Thrombocytopenia, unspecified; E83.42 Hypomagnesemia
CPT/HCPCS: 36415; 70450; 70450-26; 74177; 74177-26; 80048; 80053; 80307; 83605; 83735; 84132; 85025; 85027; 85610; 96365; 96375; 99223; 99232; 99238; 99285; 99285-25; A9270-GY; J2060; J3475; J3480; J3490; J7030; Q9967